=== PATIENT | female | born 1945 | race Caucasian/White ===

== ENCOUNTER 2016-05-24 08:01 | Day surgery (SDC) | payer MEDICARE, OTHER ==
[~2016-05-24] VITALS: Ht 165.1 cm; Wt 132.3 kg
--- NOTE | 2016-05-24 07:05 | MH ---
cc: PRABHA SWEENEY M.D. DATE OF ADMISSION: 05/24/2016 ADMITTING DIAGNOSIS Osteoarthritis of the right knee. HISTORY This is a 70-year-old female with significant right knee pain. Investigative studies shows evidence of extensive osteoarthritis of the right knee. Despite conservative care this patient is painful and symptomatic. She presents for surgical treatment. PAST MEDICAL HISTORY, SOCIAL HISTORY, FAMILY HISTORY, REVIEW OF SYSTEMS: See attached notes. PHYSICAL EXAMINATION General: A 70-year-old female in moderate distress with her right knee. HEENT: Normocephalic, atraumatic. Pupils equal, round, reactive to light and accommodation. Extraocular motions intact. Neck: Supple. Chest: Clear. Heart: Regular rate and rhythm. Abdomen: Soft, nontender with normoactive bowel sounds. Musculoskeletal: Examination shows right pain with range of motion especially with flexion and extension. Neurovascular and vascular examination is within normal limits. IMPRESSION: Osteoarthritis right knee. PLAN: Right total knee replacement arthroplasty. CONSENT There are risks with surgery including infection, bleeding, loss of motion, continued pain, need for further surgery, neurologic or vascular injury. The patient understands these risks and wishes to press on with the surgery as outlined above. MD MOISES Denton/SHAWN /11:13 PM /6:59 AM
[~2016-05-24 08:01] MED LIST: ASPI1TAB69 PO; CARV12.52 PO; IRBE300T11 PO; LOVA20TA PO; MELA1TAB18 PO; NEXI40CA PO; PROB1CAP12 PO; VENL75TA PO; VESI10TA PO; VITA10004 PO; VITA200012 PO
[2016-05-24] MEDS ORDERED: ceFAZolin 2 GM PREMIX 50 ML ONE (08:29)
[2016-05-24] MEDS ORDERED: GENTAMICIN SULFATE 80 MG/2 ML VIAL ONE (08:29)
[2016-05-24] MEDS ORDERED: ACET325T PO (08:41)
[2016-05-24] MEDS ORDERED: NOVOLOGP2 SQ (08:41)
[2016-05-24] MEDS ORDERED: POVIDONE IODINE 7.5% SCRUB 118 ML BOTTLE TOP SCH (08:45)
[2016-05-24] MEDS ORDERED: EXPAREL PERI-ARTICULAR INJECTION (TOTAL VOL. 60 ML) P-ARTICULR SCH ×2 (08:45)
[2016-05-24] MEDS ORDERED: ceFAZolin 2 GM PREMIX 50 ML IV SCH (08:45)
[2016-05-24] MEDS ORDERED: VANCOMYCIN 1000 MG/NS 250 ML (for <70 kg) IV SCH ×2 (08:45)
[2016-05-24] MEDS ORDERED: LEVEMIR SQ (08:54)
[2016-05-24] MEDS ORDERED: SODIUM CHLOR 0.9% 250 ML INJ 250 ML ONE (08:57)
[2016-05-24 08:58] VITALS: BP 139/69; PULSE 64; RESP 22; TEMP 97.7; O2SAT 95
[2016-05-24] MEDS ORDERED: SODIUM CHLORID 0.9% 500 ML IV SCH (09:00)
[2016-05-24] MEDS ORDERED: LACTATED RINGER'S 1000 ML IV SCH (09:00)
[2016-05-24] MEDS ORDERED: TRANEXAMIC ACID INJ 1,320 MG in SODIUM CHLORIDE 0.9% INJ 100 ML IV SCH (09:00)
[2016-05-24] MEDS ORDERED: INSULIN HUMAN REGULAR 1,000 UNITS/10 ML VIAL SQ PRN (09:00)
[2016-05-24] MEDS ORDERED: ACETAMINOPHEN 1000 MG/100 ML VIAL IV ONE (09:10)
[2016-05-24] MEDS ORDERED: MIDAZOLAM HCL 5 MG/5 ML VIAL ONE (09:40)
[2016-05-24] MEDS ORDERED: SUGAMMADEX SODIUM 200 MG/2 ML VIAL IV PUSH ONE ×2 (09:42)
[2016-05-24] MEDS ORDERED: FAMOTIDINE 20 MG/2 ML VIAL ONE (09:43)
[2016-05-24] MEDS ORDERED: ARTIFICIAL TEARS OPTH OINT 3.5 APPLIC/3.5 GM TUBO ONE (09:43)
[2016-05-24 09:47] LABS: BACTERIA, URINE OCC /hpf; BLOOD, URINE NEG (NEG); GLUCOSE,URINE NEG (NEG); HYALINE CAST, URINE 4 /lpf (RARE); KETONE, URINE NEG (NEG); MUCUS URINE FEW /lpf (OCC); NITRITE,URINE NEG (NEG); PH, URINE 5.5 (5.0-8.5); SQUAMOUS EPITHELIAL CELL URINE 4 /hpf (0-5); TRANSITIONAL EPI CELLS, URINE 1 /hpf; URINE COLOR YELLOW (YELLW/STRAW)
[2016-05-24 09:54] LABS: COMMENT (UR) CULTURE INDICATED; CULTURE IF INDICATED CULTURE INDICATED
== END 2016-05-24 11:05 | disposition home or self-care (01) ==
LOC: UNDOADMIN 08:01 → HSDI 08:01 → HSDC 08:01 → EDSTATUS 08:30 → HSDC 11:05
PROVIDERS: ATTEND Orthopaedic Surgery Orthopaedic Surgery of the Spine
DX: Z53.8 Procedure and treatment not carried out for other reasons (principal); M17.11 Unilateral primary osteoarthritis, right knee; R82.99 Other abnormal findings in urine
CPT/HCPCS: 81001; 82948; 86850; 86900; 86901; 86920; 87086; G0463; J2250; J3370; J7050; J7120; 99211; J0131; J0690; J1580

== ENCOUNTER 2016-06-06 14:35 | Inpatient (IN) | payer MEDICARE, OTHER ==
[~2016-06-06] VITALS: Ht 165.1 cm; Wt 135.2 kg
[~2016-06-06 14:35] MED LIST changes: +ACET325T PO; +LEVEMIR SQ; +NOVOLOGP2 SQ
--- NOTE | 2016-06-07 07:49 | MH ---
cc: PRABHA SWEENEY M.D. DATE OF ADMISSION: 06/07/2016 ADMITTING DIAGNOSIS Osteoarthritis of the right knee. HISTORY This is a 70-year-old female with significant right knee pain. Investigative studies show evidence of extensive arthritis of the right knee. Despite conservative care including injections, oral medications, altered activities, physical therapy, etc., the patient is painful and symptomatic. The patient presents for surgery. PAST MEDICAL HISTORY, SOCIAL HISTORY, FAMILY HISTORY, REVIEW OF SYSTEMS See attached notes. PHYSICAL EXAMINATION General: Average build female in moderate distress with her right knee. HEENT: Normocephalic, atraumatic. Pupils equal, round, reactive to light and accommodation. Extraocular motions intact. Neck: Supple. Chest: Clear. Heart: Regular rate and rhythm. Abdomen: Soft, nontender with normoactive bowel sounds. Musculoskeletal Examination: Right hip examination within normal limits. Right knee lacks 3-4 degrees from full extension. Flexion is to 110 degrees. Moderate crepitus is seen. Mild deformity. Neurologic and Vascular: Examination is within normal limits. IMPRESSION Osteoarthritis right knee. PLAN Right total knee replacement arthroplasty. CONSENT There are risks with surgery including infection, bleeding, loss of motion, continued pain, need for further surgery, neurologic and vascular injury. The patient understands these issues and wishes to press on with surgery as outlined above. MD MOISES Denton/SHAWN /8:22 PM /8:19 AM
[2016-06-07] MEDS ORDERED: BUPIVACAINE HCL PF 0.5% 30 ML VIAL NB ONE (08:09)
[2016-06-07 09:48] VITALS: BP 149/59; PULSE 56; RESP 18; TEMP 98.7; O2SAT 98
[2016-06-07] MEDS: LACTATED RINGER'S 1000 ML IV SCH (09:55)
[2016-06-07] MEDS ORDERED: ceFAZolin 2 GM PREMIX 50 ML IV SCH (10:00)
[2016-06-07] MEDS ORDERED: VANCOMYCIN 1000 MG/NS 250 ML (for <70 kg) IV SCH ×2 (10:00)
[2016-06-07] MEDS: POVIDONE IODINE 7.5% SCRUB 118 ML BOTTLE TOP SCH (10:00)
[2016-06-07] MEDS ORDERED: INSULIN HUMAN REGULAR 1,000 UNITS/10 ML VIAL SQ PRN (10:00)
[2016-06-07] MEDS: SODIUM CHLORID 0.9% 500 ML IV SCH (10:00)
[2016-06-07] MEDS: SODIUM CHLORIDE 0.9% IV SCH ×2 (10:00→13:26)
[2016-06-07] MEDS: EXPAREL PERI-ARTICULAR INJECTION (TOTAL VOL. 60 ML) P-ARTICULR SCH ×4 (10:00→13:26)
[2016-06-07] MEDS: TRANEXAMIC ACID IV SCH ×2 (10:00→13:26)
[2016-06-07] MEDS ORDERED: MIDAZOLAM HCL 2 MG/2 ML VIAL ONE ×3 (10:45→15:08)
[2016-06-07] MEDS ORDERED: GENTAMICIN SULFATE 80 MG/2 ML VIAL IRRIGATION ONE (11:55)
[2016-06-07] MEDS ORDERED: LACTATED RINGER'S 1000 ML INJ 1,000 ML IV ONE (12:49)
[2016-06-07] MEDS ORDERED: PROPOFOL 200 MG/20 ML AMP IV ONE (12:49)
[2016-06-07] MEDS ORDERED: ONDANSETRON HCL 4 MG/2 ML VIAL IV PUSH ONE (12:49)
[2016-06-07] MEDS ORDERED: CPMMACHINE (13:00)
--- NOTE | 2016-06-07 13:00 | HHI.FF ---
Face to Face Verification Diagnosis: (1) Right knee pain (2) Osteoarthritis of right knee Physical Therapy Gait training, Safety evaluation, Transfer training, bed to chair Knee: Total knee, Protocol: Right, Full weight bearing Canvas Knee Splint: When in bed & 2 pillows btw thighs Right LE Weight Bearing: WB as tolerated Additional Instructions PT 5 days/wk. TKA protocol. WBAT RLE. Walker to assist. CPM twice daily as tolerated - 0 to 70 flexion with goal of 100 flexion. CKS when in bed for 3 weeks. Nursing RN Days per Week: 2 x Week(s): 1 Dressing Changes: Do not change dressing Additional Instructions Vitals assessment, dressing assessment - do not change unless saturated or erythema. Ok to shower pod#5 if kept sealed and dry. I have seen patient Rebecca Laureano on 06/07/16. My clinical findings support the need for the requested home health care services because: Limited ability to care for self High risk of falls I certify that my clinical findings support that this patient is homebound because: Post-op weakness Unsteady gait/balance Malachi Spence MD Jun 07, 2016 13:00
[2016-06-07] MEDS ORDERED: WALKER WHEELS/F1 MIS (13:01)
[2016-06-07] MEDS ORDERED: ALUMINUM/MAGNESIUM/SIMETH 30 ML CUP PO PRN (14:30)
[2016-06-07] MEDS ORDERED: Post-op Orders (for Pharmacy) MISC XX ONE (14:30)
[2016-06-07] MEDS ORDERED: MISCELLANEOUS NURSING INFORMATION XX PRN (14:30)
[2016-06-07] MEDS ORDERED: BISACODYL 10 MG SUPP PR PRN (14:30)
[2016-06-07] MEDS ORDERED: ACETAMINOPHEN/HYDROcodone 325 MG/7.5 MG TAB PO PRN (14:30)
[2016-06-07] MEDS ORDERED: MORPHINE SULFATE 8 MG/ML INJ IV PUSH PRN (14:30)
[2016-06-07] MEDS ORDERED: ONDANSETRON HCL 4 MG/2 ML VIAL IVP PRN (14:30)
[2016-06-07] MEDS ORDERED: SODIUM CHLORIDE 0.9% FLUSH 5 ML FLUSH IVF PRN (14:30)
[2016-06-07] MEDS ORDERED: DEXTROSE 50% IN WATER 50 ML VIAL(D50) IV PRN (14:30)
[2016-06-07] MEDS ORDERED: GLUCAGON 1 MG/ML VIAL IM/SQ PRN (14:30)
[2016-06-07] MEDS ORDERED: NALOXONE HCL 0.4 MG/ML AMP IV PRN (14:30)
--- NOTE | 2016-06-07 14:39 | PD.OP ---
cc: Malachi Spence. Operative Report Date of Surgery: Jun 07, 2016 Preoperative Diagnosis: Osteoarthritis right knee, severe. Valgus deformity right knee Postoperative Diagnosis: Same Procedure: Right total knee replacement arthroplasty Anesthesia: Spinal Surgeon: Malachi Spence Under Presser(s): Cherelle Herrera PA-C Operation and Findings: EBL: 100 cc INDICATION: This patient presents with long-standing arthritis of the knee. The patient has a moderate to advanced valgus deformity of the right knee with mild instability. Attachment record documents conservative measures. The patient now presents for surgical treatment. NOTE: Cherelle Herrera PA-C was present for the entire surgical procedure as my sampler first. In my medical opinion her skill and care was necessary for proper management of this patient. TOURNIQUET TIME: 52 minutes COMPANY: [employer] FEMUR: Size 3, posterior cruciate retaining TIBIA: Size 3, fixed bearing PATELLA: 35 mm POLYETHYLENE INSERT: 9 mm PROCEDURE: This patient was brought the operating room and anesthetized in the supine position. The patient was positioned supine on the table. The tourniquet was placed about the thigh, and the leg was scrubbed with alcohol followed by Hibiclens followed by ChloraPrep and draped sterilely. A timeout was done, and antibiotics were given. After exsanguination the tourniquet was inflated to 300 mmHg. An anterior incision was made and a median parapatellar arthrotomy was performed. The patella was released laterally and subluxed allowing freehand cut of the patella which was then sized. A metal cap was placed over the exposed patellar surface for protection. A commercial drone pilot hole was placed in the distal femur allowing a 5 valgus cut removing 10 mm from the distal femur. Anterior posterior and chamfer cuts were made. The posterior stabilize osteotomy was not necessary. The attention was directed to the tibia. Retractors were positioned. The external alignment guide was used allowing the lateral tibia to be used as referencing guide and cut utilizing an oscillating saw taking care to avoid any injury to the surrounding soft tissues. This was sized properly. Trial reduction showed that the insert fit nicely. The patient had range of motion extension 0 flexion 115. A medial release was not necessary. The bony surfaces prepared. On the back table 2 packets of methylmethacrylate were mixed. The components were cemented. Excess cement was removed. The tourniquet let down and hemostasis was controlled. The final plastic insert was inserted. Range of motion was the same as previously noted. A drain was brought through a separate stab incision. The arthrotomy was repaired with interrupted #1 Vicryl suture, subcutaneous tissue 2-0 Vicryl suture and skin with metallic sarah A sterile dressing was applied. Sponge counts, needle counts and instrument counts were all correct. The patient tolerated procedure well and was taken to recovery in satisfactory condition. FINDINGS: There was advanced arthritis especially of the lateral compartment. A moderate valgus deformity was seen. Final stability was excellent. No complication was noted. Malachi Spence MD Jun 07, 2016 14:39
[2016-06-07] MEDS ORDERED: XARE10TA PO (14:41)
[2016-06-07] MEDS ORDERED: HYDR-3580 PO (14:41)
[2016-06-07] MEDS ORDERED: DO NOT ADM ANY ANTICOAGULANT DRUGS XX PRN (14:59)
[2016-06-07] MEDS: LACTATED RINGER'S 1000 ML INJ 1,000 ML IV SCH (15:00)
[2016-06-07] MEDS: MORPHINE SULFATE 30 MG/30 ML PCA IV SCH (15:36)
[2016-06-07 16:00] VITALS: BP 146/65; PULSE 65; RESP 19; TEMP 95.9; O2SAT 94
[2016-06-07] MEDS: INSULIN NovoLIN REGULAR SUPPLEMENTAL SCALE SQ SCH ×2 (16:00→21:52)
--- NOTE | 2016-06-07 16:18 | RADRPT ---
EXAM DATE/TIME: 06/07/2016 14:57 [facility] COMPARISON: No previous studies available for comparison. INDICATIONS : Post operative right knee. MEDICAL HISTORY : None. SURGICAL HISTORY : None. ENCOUNTER: Initial ACUITY: 1 day PAIN SCORE: Non-responsive. LOCATION: anterior right knee. FINDINGS: AP and lateral views of the right knee demonstrate changes consistent with recent total knee arthropl asty with metallic hardware in place in the distal femur and proximal tibia. There is a radiolucent p atellar component. Skin sarah are present anteriorly. There is soft tissue gas present, as expected . A surgical drain is in place. CONCLUSION: Expected findings are present following recent right total knee arthroplasty. Alonzo Leavitt MD on June 07, 2016 at 16:16 Board Certified Radiologist. This report was verified electronically.
--- NOTE | 2016-06-07 16:22 | PD.CONS ---
HPI Service [facility] Hospitalists Consult Requested By Malachi Guardado Reason for Consult Medical management Primary Care Physician Leonela Venegas Diagnoses: History of Present Illness This is a pleasant 70 year old white female with significant history of arthritis of the knee, valgus deformity that has failed conservative outpatient treatment. Patient presented for elective surgery. Patient underwent right total knee arthroplasty per Dr. Spence. Patient tolerated procedure well, she has minimal pain. Denies any chest pain, shortness of breath. Has history hypertension, hyperlipidemia and type 2 diabetes on insulin. Indicates blood sugars are well controlled at home. Indicates surgery was canceled 2 weeks ago after she was found to have a UTI, denies any fever, no chills, no urinary symptoms. Hospitalist services are requested for medical management. (Any Ferrell) Review of Systems Constitutional: DENIES: Diaphoretic episodes, Fatigue, Fever, Weight gain, Weight loss, Chills, Dizziness, Change in appetite, Night Sweats Endocrine: DENIES: Abnorml menstrual pattern, Heat/cold intolerance, Polydipsia , Polyuria, Polyphagia Eyes: DENIES: Blurred vision, Diplopia, Eye inflammation, Eye pain, Vision loss , Photosensitivity, Double Vision Ears, nose, mouth, throat: DENIES: Tinnitus, Hearing loss, Vertigo, Nasal discharge, Oral lesions, Throat pain, Hoarseness, Ear Pain, Running Nose, Epistaxis, Sinus Pain, Toothache, Odynophagia Respiratory: DENIES: Apneas, Cough, Snoring, Wheezing, Hemoptysis, Sputum production, Shortness of breath Cardiovascular: DENIES: Chest pain, Palpitations, Syncope, Dyspnea on Exertion , PND, Lower Extremity Edema, Orthopnea, Claudication Gastrointestinal: DENIES: Abdominal pain, Black stools, Bloody stools, Constipation, Diarrhea, Nausea, Vomiting, Difficulty Swallowing, Anorexia Genitourinary: DENIES: Abnormal vaginal bleeding, Dysmenorrhea, Dyspareunia, Sexual dysfunction, Urinary frequency, Urinary incontinence, Urgency, Hematuria , Dysuria, Nocturia, Vaginal discharge Musculoskeletal: COMPLAINS OF: Joint pain, DENIES: Muscle aches, Stiffness, Joint Swelling, Back pain, Neck pain Integumentary: DENIES: Abnormal pigmentation, Pruritus, Rash, Nail changes, Breast masses, Breast skin changes, Nipple discharge Hematologic/lymphatic: DENIES: Bruising, Lymphadenopathy Immunologic/allergic: DENIES: Eczema, Urticaria Neurologic: DENIES: Abnormal gait, Headache, Localized weakness, Paresthesias, Seizures, Speech Problems, Tremor, Poor Balance Psychiatric: DENIES: Anxiety, Confusion, Mood changes, Depression, Hallucinations, Agitation, Suicidal Ideation, Homicidal Ideation, Delusions ( Any Ferrell) Past Family Social History Past Medical History Type 2 diabetes Hypertension Osteoarthritis Hyperlipidemia Cataracts Soft tissue infection of the left knee Esophageal stricture Recent UTI Past Surgical History Cataract surgery Tonsillectomy Left breast biopsy Right hip replacement Reported Medications Reported Meds & Active Scripts Active Xarelto (Rivaroxaban) 10 Mg Tab 10 Mg PO Q24H Hydrocodone-Acetaminophen 7.5-325 mg Tab 1 Tab PO Q4H PRN Reported Levemir Inj (Insulin Detemir) 1,000 unit/ 10 ML Vial 30 Units SQ BID Do not mix with any other Insulin. Acetaminophen 325 Mg Tab 325 Mg PO Q4-6H PRN Novolog Inj (Insulin Aspart) 1,000 Unit/10 Ml Vial 25 Units SQ TID Aspirin 81 Mg Tabdr 81 Mg PO HS Melatonin 10 Mg Tab 10 Mg PO HS PRN Lovastatin 20 Mg Tab 20 Mg PO HS Vitamin B12 Tr (Cyanocobalamin) 1,000 Mcg Tab 2,000 Mcg PO WEEKLY Vitamin D3 (Cholecalciferol) 2,000 Unit Tab 2,000 Units PO BID Acidophilus (Probiotic Product) 1 Cap Cap 1 Cap PO BID Carvedilol 12.5 Mg Tab 12.5 Mg PO BID Nexium (Esomeprazole DR) 40 Mg Capdr 40 Mg PO BID Vesicare (Solifenacin) 10 Mg Tab 10 Mg PO DAILY Irbesartan 300 Mg Tab 300 Mg PO DAILY Effexor (Venlafaxine HCl) 75 Mg Tab 150 Mg PO DAILY (Any Ferrell) Allergies: Coded Allergies: Ciprofloxacin (Verified Allergy, Severe, Rash, 06/07/16) Toprol Xl (Verified Allergy, Severe, Rash, 06/07/16) Metformin (Verified Allergy, Unknown, Rash, 06/07/16) Active Ordered Medications Inpatient Medications Acetaminophen/ Hydrocodone Bitart ([place] 7.5-325 Mg) 2 tab Q4H PRN PO PAIN SCALE 5 TO 10; Start 06/07/16 at 14:30 Al Hydrox/Mg Hydrox/Simethicone (Mag-Al Plus Susp Liq) 30 ml Q6H PRN PO INDIGESTION; Start 06/07/16 at 14:30 Bisacodyl (Dulcolax Supp) 10 mg DAILY PRN [place] CONSTIPATION; Start 06/07/16 at 14 :30 Bupivacaine Liposome/Sodium Chloride (Exparel Pf 1.3% Inj/NS Inj) 60 ml @ 120 mls/hr ONCE P-ARTICULR Last administered on 06/07/16 13:26; Start 06/07/16 at 10:00; Stop 06/08/16 at 09:59 Carvedilol (Coreg) 12.5 mg BID PO ; Start 06/07/16 at 21:00 Cefazolin Sodium/ Dextrose 50 ml @ 100 mls/hr ANIMAL CARE TECHNICIAN IV Last administered on 06/07/16 12:40; Start 06/07/16 at 10:00; Stop 06/10/16 at 09:59 Cefazolin Sodium/ Sodium Chloride (Ancef Inj/NS Inj) 100 ml @ 200 mls/hr Q6H IV ; Start 06/07/16 at 18:00; Stop 06/08/16 at 06:29 Dextrose (D50w (Vial) Inj) 25 ml UNSCH PRN IV HYPOGLYCEMIA-SEE COMMENTS; Start 06/07/16 at 14:30 Docusate Sodium (Colace) 100 mg BID PO ; Start 06/08/16 at 21:00 Glucagon (Glucagon Inj) 1 mg UNSCH PRN IM/SQ HYPOGLYCEMIA-SEE COMMENTS; Start 06/07/16 at 14:30 Insulin Human Regular (NovoLIN R SUPPLEMENTAL SCALE) 1 ACHS SLIDING SCALE SQ ; Start 06/07/16 at 16:00 Insulin Human Regular (NovoLIN R INJ) See Protocol Table ... UNSCH X1 PRN SQ SEE PROTOCOL; Start 06/07/16 at 10:00; Stop 06/08/16 at 09:59 IV Flush (NS Flush) 2 ml UNSCH PRN IVF FLUSH AFTER USING IV ACCESS; Start 06/07 at 14:30 IV Flush 2 ml 2 ml BID IVF ; Start 06/07/16 at 21:00 Lactated Ringer's (Lr 1000 ml Inj) 1,000 ml @ 80 mls/hr [id number] IV Last administered on 06/07/16 15:00; Start 06/07/16 at 14:28 Losartan Potassium (Cozaar) 300 mg DAILY PO ; Start 06/08/16 at 09:00; Status UNV Magnesium Hydroxide (Milk Of Magnmargo Liq) 30 ml DAILY PRN PO CONSTIPATION; Start 06/07/16 at 14:30 Miscellaneous Information ALL NURSING DEPARTME... UNSCH PRN XX SEE LABEL COMMENTS; Start 06/07/16 at 14:59; Stop 06/08/16 at 14:58 Miscellaneous Information (Post-op Orders (for Pharmacy)) STAT ONCE XX ; Start 06/07/16 at 14:30; Stop 06/07/16 at 15:23; Status DC Morphine Sulfate (Morphine 1 Mg/ ml ALTERNATIVE ENERGY TECHNICIAN) 30 mg UNSCH IV Last administered on t 15:36; Start 06/07/16 at 14:30 Morphine Sulfate (Morphine Inj) 5 mg Q3H PRN IV PUSH Pain >7 when off ALTERNATIVE ENERGY TECHNICIAN; Start 06/07/16 at 14:30 Multivitamins/ Minerals Therapeutic (Theragran M Tab) 1 tab BID PO ; Start 06/08 at 21:00; Stop 08/07/16 at 20:59 Naloxone HCl (Narcan Inj) 0.4 mg UNSCH PRN IV RESPIRATORY RATE LESS THAN 10; Start 06/07/16 at 14:30 Ondansetron HCl (Zofran Inj) 4 mg Q6H PRN IVP NAUSEA OR VOMITING; Start at 14:30 Pantoprazole Sodium (Protonix) 40 mg BID PO ; Start 06/07/16 at 21:00 ALTERNATIVE ENERGY TECHNICIAN Dosage Infused (Pha) 1 Q8HR .XX ; Start 06/07/16 at 22:00 Povidone Iodine 1 applic 1 applic ONCE TOP ; Start 06/07/16 at 10:00; Stop 06/10 at 09:59 Pravastatin Sodium (Pravachol) 20 mg HS PO ; Start 06/07/16 at 21:00 Rivaroxaban (Xarelto) 10 mg Q24H PO ; Start 06/08/16 at 14:00 Sodium Chloride (NS 500 ml Inj) 500 ml @ 30 mls/hr [id number] IV ; Start 06/07/16 at 10:00; Stop 06/08/16 at 09:59 Tolterodine Tartrate (Detrol La) 4 mg DAILY PO ; Start 06/08/16 at 09:00 Tranexamic Acid 1306 mg/Sodium Chloride 113.06 ml @ 200 mls/ hr ONCE IV Last administered on 06/07/16 13:26; Start 06/07/16 at 10:00; Stop 06/08/16 at 16:00 Vancomycin HCl 1000 mg/Sodium Chloride 250 ml @ 250 mls/hr ANIMAL CARE TECHNICIAN IV Last administered on 06/07/16 10:13; Start 06/07/16 at 10:00; Stop 06/10/16 at 09:59 Venlafaxine HCl 150 mg 150 mg DAILY PO ; Start 06/08/16 at 09:00 Family History Positive for history of diabetes in her mother and daughter. Social History Patient is , lives with . Denies any alcohol, no substance abuse , no tobacco abuse. (Any Ferrell) Physical Exam Vital Signs Vital Signs Date Time Temp Pulse Resp B/P Pulse Ox O2 Delivery O2 Flow Rate FiO2 06/07/16 16:00 96.1 64 12 147/67 92 Room Air 06/07/16 15:45 60 12 145/81 95 Room Air 06/07/16 15:36 12 06/07/16 15:30 51 12 154/82 98 Room Air 06/07/16 15:15 94 12 170/80 95 Room Air 06/07/16 15:00 96.4 92 12 162/70 94 Room Air 06/07/16 09:48 98.7 56 18 149/59 98 Physical Exam GENERAL: This is a well-nourished, well-developed patient, in no apparent distress. SKIN: No rashes, ecchymoses or lesions. Cool and dry. HEAD: Atraumatic. Normocephalic. No temporal or scalp tenderness. EYES: Pupils equal round and reactive. Extraocular motions intact. No scleral icterus. No injection or drainage. ENT: Nose without bleeding, purulent drainage or septal hematoma. Throat without erythema, tonsillar hypertrophy or exudate. Uvula midline. Airway patent. NECK: Trachea midline. No JVD or lymphadenopathy. Supple, nontender, no meningeal signs. CARDIOVASCULAR: Regular rate and rhythm without murmurs, gallops, or rubs. RESPIRATORY: Clear to auscultation. Breath sounds equal bilaterally. No wheezes , rales, or rhonchi. GASTROINTESTINAL: Abdomen soft, non-tender, nondistended. No hepato-splenomegaly , or palpable masses. No guarding. MUSCULOSKELETAL: Right leg in CPM, bulky dressing in place. Hemovac drain in place. Intact sensation to the right foot, right pedal pulse 2+. Able to dorsiflex right foot. No other joint abnormalities. NEUROLOGICAL: Awake alert oriented 3. Following commands, no focal deficits. Laboratory Laboratory Tests Test 06/07/16 09:42 Blood Type A POSITIVE Antibody Screen NEGATIVE Crossmatch Leukocyte-Reduced Red Blood Cells Blood Bank Comment (Any Ferrell) Imaging Last Impressions Knee X-Ray 06/07/16 2418 Signed Impressions: Service Date/Time: Tuesday, June 07, 2016 14:57 - CONCLUSION: Expected findings are present following recent right total knee arthroplasty. Alonzo Leavitt MD (Any Ferrell) A/P Diagnosis: (1) Osteoarthritis of right knee (2) right total knee arthroplasty (3) Diabetes 1.5, managed as type 2 (4) Hypertension Assessment and Plan Thank you for this consultation 70-year-old female with history of osteoarthritis, status post right total knee arthroplasty -Continue postoperative orthopedic care Continue with Xarelto for DVT prophylaxis Physical therapy Wound care Pain management -Bowel regimen DM II Accu-Cheks before meals and at bedtime with insulin therapy Hypertension, stable Continue with home medications Continue with Xarelto for DVT prophylaxis Protonix for GI prophylaxis We will check CBC and BMP in the morning Plan of care has been discussed with the patient, attending and registered nurse. Further management of the patient will be dependent on the hospital course This patient was seen by myself and Dr. Miles, this consultation is written on his behalf (Any Ferrell) Assessment and Plan PT IS SEEN & EXAMINED D/W PT D/W ANY SCHROEDER W ABOVE THANKS WILL F/U (Brigette Miles MD) Problem Qualifiers (1) Osteoarthritis of right knee: Qualified Code: M17.11 - Primary osteoarthritis of right knee (2) Hypertension: Qualified Code: I10 - Essential hypertension Any Ferrell Jun 07, 2016 16:22 Brigette Miles MD Jun 07, 2016 18:38
[2016-06-07] MEDS ORDERED: *morphine SULFATE 8 MG/ML PERIprocedure ONLY ONE ×2 (17:24→17:39)
[2016-06-07] MEDS: ACETAMINOPHEN/HYDROcodone 325 MG/7.5 MG TAB PO PRN (18:30)
[2016-06-07 20:00] VITALS: BP 169/67; PULSE 86; RESP 20; TEMP 97.9; O2SAT 98
[2016-06-07] MEDS: SODIUM CHLORIDE 0.9% FLUSH 5 ML FLUSH IVF SCH (21:00)
[2016-06-07 21:39] VITALS: O2SAT 98
[2016-06-07] MEDS: PANTOPRAZOLE SOD 40 MG DELAYED RELEASE TAB PO SCH (21:44)
[2016-06-07] MEDS: CARVEDILOL 12.5 MG TAB PO SCH (21:44)
[2016-06-07] MEDS: PRAVASTATIN SOD 20 MG TAB PO SCH (21:44)
[2016-06-07] MEDS: PCA - TOTAL MG MORPHINE DELIVERED PER SHIFT SCH (22:00)
[2016-06-08] VITALS (8 sets, daily range): BP systolic 125–196; BP diastolic 47–75; PULSE 65–84; RESP 16–18; TEMP 95.9–99.3; O2SAT 92–98
[2016-06-08] MEDS: SODIUM CHLORID 0.9% 500 ML IV SCH (02:40)
[2016-06-08] MEDS: LACTATED RINGER'S 1000 ML INJ 1,000 ML IV SCH ×2 (02:58→13:03)
[2016-06-08] MEDS: MORPHINE SULFATE 30 MG/30 ML PCA IV SCH (03:21)
[2016-06-08] MEDS: ACETAMINOPHEN/HYDROcodone 325 MG/7.5 MG TAB PO PRN ×4 (03:24→20:48)
[2016-06-08] MEDS: PCA - TOTAL MG MORPHINE DELIVERED PER SHIFT SCH ×3 (06:00→21:41)
[2016-06-08] MEDS: INSULIN NovoLIN REGULAR SUPPLEMENTAL SCALE SQ SCH ×4 (06:20→20:49)
[2016-06-08 08:29] LABS: HEMATOCRIT 31.1 % (35.0-46.0); MEAN CELL VOLUME 88.2 FL (80.0-100.0); MEAN CORPUSCULAR HEMOGLOBIN 29.3 PG (27.0-34.0); MEAN CORPUSCULAR HGB CONC 33.2 % (32.0-36.0); PLATELET COUNT 219 TH/MM3 (150-450); RED BLOOD COUNT 3.52 MIL/MM3 (4.00-5.30); RED CELL DISTRIBUTION WIDTH 14.9 % (11.6-17.2); REVIEW FLAG FINAL; WHITE BLOOD COUNT 9.3 TH/MM3 (4.0-11.0)
[2016-06-08 08:49] LABS: BICARBONATE 26.7 MEQ/L (21.0-32.0); POTASSIUM 4.7 MEQ/L (3.5-5.1)
[2016-06-08] MEDS: SODIUM CHLORIDE 0.9% FLUSH 5 ML FLUSH IVF SCH ×2 (09:00→20:49)
[2016-06-08] MEDS: VENLAFAXINE HCL XR 75 MG CAP PO SCH (09:18)
[2016-06-08] MEDS: PANTOPRAZOLE SOD 40 MG DELAYED RELEASE TAB PO SCH ×2 (09:19→20:48)
[2016-06-08] MEDS: CARVEDILOL 12.5 MG TAB PO SCH ×2 (09:19→20:48)
[2016-06-08] MEDS: TOLTERODINE TARTRATE 4 MG CAP LA PO SCH (09:19)
[2016-06-08] MEDS: LOSARTAN 50 MG TAB PO SCH (09:19)
[2016-06-08] MEDS: SODIUM CHLORIDE 0.9% IV SCH (10:00)
[2016-06-08] MEDS: POVIDONE IODINE 7.5% SCRUB 118 ML BOTTLE TOP SCH (10:00)
[2016-06-08] MEDS: LACTATED RINGER'S 1000 ML IV SCH (10:00)
[2016-06-08] MEDS: TRANEXAMIC ACID IV SCH (10:00)
--- NOTE | 2016-06-08 11:24 | HHI.PR ---
Subjective History of Present Illness knee is painful /pain meds are helping No nausea or vomiting Appetite is not very good No fever or chills No chest pain or shortness of breath No abdominal pain No BM today Sat in chair today Offers no other complaints Vitals/Results Intake & Output 06/07/16 06/07/16 06/08/16 15:00 23:00 07:00 Intake Total 1900 ml 633 ml 280 ml Output Total 400 ml 585 ml 400 ml Balance 1500 ml 48 ml -120 ml Intake Oral 280 ml IV Total 633 ml Other 1900 ml Output Urine Total 550 ml 400 ml Drainage Total 35 ml Estimated Blood Loss 100 ml Other 300 ml # Bowel Movements 0 Vital Signs Vital Signs Date Time Temp Pulse Resp B/P Pulse Ox O2 Delivery O2 Flow Rate FiO2 06/08/16 06:00 17 06/08/16 03:21 18 06/08/16 01:10 162/70 06/07/16 22:00 18 06/07/16 21:39 98 21 06/07/16 20:00 97.9 86 20 169/67 98 06/07/16 17:00 98.5 69 12 160/79 98 Room Air 06/07/16 16:00 95.9 65 19 146/65 94 06/07/16 16:00 96.1 64 12 147/67 92 Room Air 06/07/16 15:45 60 12 145/81 95 Room Air 06/07/16 15:36 12 06/07/16 15:30 51 12 154/82 98 Room Air 06/07/16 15:15 94 12 170/80 95 Room Air 06/07/16 15:00 96.4 92 12 162/70 94 Room Air CBC/BMP: 06/08/16 0733 06/08/16 0733 Lab Results Laboratory Tests Test 06/08/16 07:33 White Blood Count 9.3 TH/MM3 Red Blood Count 3.52 MIL/MM3 Hemoglobin 10.3 GM/DL Hematocrit 31.1 % Mean Corpuscular Volume 88.2 FL Mean Corpuscular Hemoglobin 29.3 PG Mean Corpuscular Hemoglobin 33.2 % Concent Red Cell Distribution Width 14.9 % Platelet Count 219 TH/MM3 Mean Platelet Volume 8.9 FL Sodium Level 137 MEQ/L Potassium Level 4.7 MEQ/L Chloride Level 104 MEQ/L Carbon Dioxide Level 26.7 MEQ/L Anion Gap 6 MEQ/L Blood Urea Nitrogen 17 MG/DL Creatinine 1.14 MG/DL Estimat Glomerular Filtration 47 ML/MIN Rate Random Glucose 189 MG/DL Calcium Level 8.1 MG/DL Physical Exam General General Appearance: No Acute Distress, Comfortable, Obese Eyes Eye Exam: Sclera White, Extraocular Movement Intact Ears & Nose Ears & Nose Exam: Nasal Mucosa [place] Throat Throat Exam: Oral Mucosa [place] & Moist Neck Neck Exam: Neck Supple, Trachea Midline Pulmonary Resp Exam: Clear Bilaterally, Breath Sounds Equal Cardiology CV Exam: Regular, Normal Sinus Rhythm Gastrointestinal/Abdomen GI Exam: Soft, Non-Tender, Bowel Sounds Present Musculoskeletal MS Remarks R Knee dressing intact Integumentary Skin Exam: Warm, Dry Neurologic Neuro Exam: Alert, Awake, Oriented, Speech Clear, Moving All Extremities Psychiatric Psych Exam: Appropriate Responses PUD Prophylasis PUD Prophylaxis: Protonix Assessment/Plan Assessment/Plan A/P Diagnosis: (1) Osteoarthritis of right knee (2) right total knee arthroplasty (3) Diabetes 1.5, managed as type 2 (4) Hypertension Assessment and Plan - postoperative orthopedic care Xarelto for DVT prophylaxis Physical therapy Wound care Pain management - Bowel regimen/prn laxative DM II -diabetic diet -Resume levemir insulin 30 U sq bid - resume Novolog pre meal/tid Accu-Cheks before meals and at bedtime with insulin therapy Hypertension, stable -cont BB/ARB Continue with home medications/statin Continue with Xarelto for DVT prophylaxis Protonix for GI prophylaxis ss for letha planning Brigette Miles MD Jun 08, 2016 11:24
[2016-06-08] MEDS: INSULIN ASPART 1,000 UNITS/10 ML VIAL SQ SCH ×2 (12:03→17:01)
[2016-06-08] MEDS: RIVAROXABAN 10 MG TAB PO SCH (13:03)
--- NOTE | 2016-06-08 13:15 | PD.ORT.PN ---
Subjective Subjective Remarks Mild to moderate right knee pain in bed. Much worse with transitions. No radiating leg pain. Appetite good. No CP or SOB. No other concerns. Objective Vitals Vital Signs Date Time Temp Pulse Resp B/P Pulse Ox O2 Delivery O2 Flow Rate FiO2 06/08/16 13:02 16 06/08/16 06:00 17 06/08/16 03:21 18 06/08/16 01:10 162/70 06/07/16 22:00 18 06/07/16 21:39 98 21 06/07/16 20:00 97.9 86 20 169/67 98 06/07/16 17:00 98.5 69 12 160/79 98 Room Air 06/07/16 16:00 95.9 65 19 146/65 94 06/07/16 16:00 96.1 64 12 147/67 92 Room Air 06/07/16 15:45 60 12 145/81 95 Room Air 06/07/16 15:36 12 06/07/16 15:30 51 12 154/82 98 Room Air 06/07/16 15:15 94 12 170/80 95 Room Air 06/07/16 15:00 96.4 92 12 162/70 94 Room Air I/O 06/07/16 06/07/16 06/07/16 06/08/16 06/08/16 06/08/16 07:00 15:00 23:00 07:00 15:00 23:00 Intake Total 1900 ml 633 ml 280 ml 226 ml Output Total 400 ml 585 ml 400 ml 70 ml Balance 1500 ml 48 ml -120 ml 156 ml Intake Oral 280 ml IV Total 633 ml 226 ml Other 1900 ml Output Urine Total 550 ml 400 ml Drainage Total 35 ml 70 ml Estimated Blood Loss 100 ml Other 300 ml # Bowel Movements 0 Result Diagram: 06/08/16 0733 06/08/16 0733 Imaging Last 24 hours Impressions Knee X-Ray 06/07/16 1428 Signed Impressions: Service Date/Time: Tuesday, June 07, 2016 14:57 - CONCLUSION: Expected findings are present following recent right total knee arthroplasty. Alonzo Leavitt MD Objective Remarks Sitting up in bed eating lunch, No acute distress VSS RLE Dressing c/d/i, drain in place, moderate swelling thigh and calf both supple, neg homans +motor at, +ehl, +sens, +nvi Assessment & Plan Ortho Post Op Day #: 1 Problem List: Assessment and Plan pod#1 s/p R TKA Continue MANAGER PAYMENT until tomorrow am then d/c. PO pain meds for breakthrough. PT - WBAT RLE. CKS in bed. CPM twice daily. Walker as needed. Encouraged IS. Xarelto 10mg qd. Hold dressing changes unless saturated. Ok to d/c drain today. Ok to change drain site dressing only. D/C planning, prefers SNF monday. Alison Collins Jun 08, 2016 13:15
[2016-06-08] MEDS: MULTIVITAMINS/MINERALS THERAPEUTIC TAB PO SCH (20:48)
[2016-06-08] MEDS: PRAVASTATIN SOD 20 MG TAB PO SCH (20:48)
[2016-06-08] MEDS: DOCUSATE SODIUM 100 MG CAP PO SCH (20:48)
[2016-06-08] MEDS: INSULIN DETEMIR 100 UNITS/ML VIAL SQ SCH (20:49)
[2016-06-09] MEDS: LACTATED RINGER'S 1000 ML INJ 1,000 ML IV SCH ×2 (03:58→12:47)
[2016-06-09 04:00] VITALS: BP 130/55; PULSE 77; RESP 17; TEMP 98.9; O2SAT 91
[2016-06-09] MEDS: INSULIN NovoLIN REGULAR SUPPLEMENTAL SCALE SQ SCH ×4 (05:38→21:00)
[2016-06-09] MEDS: PCA - TOTAL MG MORPHINE DELIVERED PER SHIFT SCH ×2 (05:38→12:46)
[2016-06-09] MEDS: MAGNESIUM HYDROXIDE SUSP 30 ML CUP PO PRN ×2 (05:38→18:10)
[2016-06-09] MEDS: POVIDONE IODINE 7.5% SCRUB 118 ML BOTTLE TOP SCH (07:02)
[2016-06-09 08:00] VITALS: BP 153/66; PULSE 69; RESP 17; TEMP 96.8; O2SAT 98
[2016-06-09] MEDS: SODIUM CHLORIDE 0.9% FLUSH 5 ML FLUSH IVF SCH ×2 (09:00→21:20)
[2016-06-09] MEDS: MULTIVITAMINS/MINERALS THERAPEUTIC TAB PO SCH ×2 (09:36→21:20)
[2016-06-09] MEDS: VENLAFAXINE HCL XR 75 MG CAP PO SCH (09:36)
[2016-06-09] MEDS: PANTOPRAZOLE SOD 40 MG DELAYED RELEASE TAB PO SCH ×2 (09:36→21:20)
[2016-06-09] MEDS: LOSARTAN 50 MG TAB PO SCH (09:36)
[2016-06-09] MEDS: DOCUSATE SODIUM 100 MG CAP PO SCH ×2 (09:36→21:20)
[2016-06-09] MEDS: INSULIN DETEMIR 100 UNITS/ML VIAL SQ SCH ×2 (09:36→21:00)
[2016-06-09] MEDS: CARVEDILOL 12.5 MG TAB PO SCH ×2 (09:36→21:20)
[2016-06-09] MEDS: TOLTERODINE TARTRATE 4 MG CAP LA PO SCH (09:37)
[2016-06-09] MEDS: INSULIN ASPART 1,000 UNITS/10 ML VIAL SQ SCH ×3 (09:37→15:40)
[2016-06-09] MEDS: ACETAMINOPHEN/HYDROcodone 325 MG/7.5 MG TAB PO PRN ×4 (09:40→21:38)
[2016-06-09] MEDS: LACTATED RINGER'S 1000 ML IV SCH (09:40)
[2016-06-09 10:13] VITALS: O2SAT 94
[2016-06-09 12:00] VITALS: BP 148/64; PULSE 73; RESP 18; TEMP 97.7; O2SAT 99
[2016-06-09] MEDS: RIVAROXABAN 10 MG TAB PO SCH (12:47)
--- NOTE | 2016-06-09 12:52 | PD.ORT.PN ---
Subjective Subjective Remarks Mild to moderate right knee pain in bed. Bad episode last night but removing SCDs helped 'alot'. No new radiating leg pain. Appetite good. Urinating well. Passing gas but no BM. No CP or SOB. No other concerns. Objective Vitals Vital Signs Date Time Temp Pulse Resp B/P Pulse Ox O2 Delivery O2 Flow Rate FiO2 06/09/16 12:46 18 06/09/16 08:00 96.8 69 17 153/66 98 06/09/16 05:38 18 06/09/16 04:00 98.9 77 17 130/55 91 06/08/16 23:37 99.3 84 18 196/75 94 06/08/16 21:41 18 06/08/16 20:46 95 21 06/08/16 19:30 96.9 76 16 193/58 95 06/08/16 17:10 96.2 68 18 125/59 95 06/08/16 13:20 98 21 06/08/16 13:02 16 I/O 06/08/16 06/08/16 06/08/16 06/09/16 06/09/16 06/09/16 07:00 15:00 23:00 07:00 15:00 23:00 Intake Total 280 ml 826 ml 480 ml 480 ml 717 ml Output Total 400 ml 320 ml Balance -120 ml 506 ml 480 ml 480 ml 717 ml Intake Oral 280 ml 600 ml 480 ml 480 ml IV Total 226 ml 717 ml Output Urine Total 400 ml 250 ml Drainage Total 70 ml # Voids 1 2 2 # Bowel Movements 0 0 0 Result Diagram: 06/08/16 0733 06/08/16 0733 Imaging Last 24 hours Impressions Knee X-Ray 06/07/16 1428 Signed Impressions: Service Date/Time: Tuesday, June 07, 2016 14:57 - CONCLUSION: Expected findings are present following recent right total knee arthroplasty. 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 PO pain meds for breakthrough. PT - WBAT RLE. CKS in bed. CPM twice daily. Walker as needed. Encouraged IS. Encouraged LE exercises as she is not wearing SCDs. Xarelto 10mg qd. Hold dressing changes unless saturated. D/C planning, prefers SNF monday. Alison Collins Jun 09, 2016 12:52
[2016-06-09 16:00] VITALS: BP 113/53; PULSE 65; RESP 18; TEMP 98.3; O2SAT 93
[2016-06-09 20:00] VITALS: BP 144/66; PULSE 67; RESP 20; TEMP 96.9; O2SAT 94
[2016-06-09] MEDS: PRAVASTATIN SOD 20 MG TAB PO SCH (21:20)
--- NOTE | 2016-06-09 22:08 | HHI.PR ---
Subjective History of Present Illness knee pain is better /pain meds are helping No nausea or vomiting Appetite is not very good/po intake is marginal sligtly low sugar No fever or chills No chest pain or shortness of breath No abdominal pain Offers no other complaints Vitals/Results Intake & Output 06/08/16 06/08/16 06/09/16 15:00 23:00 07:00 Intake Total 826 ml 480 ml 480 ml Output Total 320 ml Balance 506 ml 480 ml 480 ml Intake Oral 600 ml 480 ml 480 ml IV Total 226 ml Output Urine Total 250 ml Drainage Total 70 ml # Voids 1 2 2 # Bowel Movements 0 0 Vital Signs Vital Signs Date Time Temp Pulse Resp B/P Pulse Ox O2 Delivery O2 Flow Rate FiO2 06/09/16 20:00 96.9 67 20 144/66 94 06/09/16 16:00 98.3 65 18 113/53 93 06/09/16 12:46 18 06/09/16 12:00 97.7 73 18 148/64 99 06/09/16 10:13 94 21 06/09/16 08:00 96.8 69 17 153/66 98 06/09/16 05:38 18 06/09/16 04:00 98.9 77 17 130/55 91 06/08/16 23:37 99.3 84 18 196/75 94 CBC/BMP: 06/08/16 0733 06/08/16 0733 Physical Exam General General Appearance: No Acute Distress, Comfortable, Obese Eyes Eye Exam: Sclera White, Extraocular Movement Intact Ears & Nose Ears & Nose Exam: Nasal Mucosa [place] Throat Throat Exam: Oral Mucosa [place] & Moist Neck Neck Exam: Neck Supple, Trachea Midline Pulmonary Resp Exam: Clear Bilaterally, Breath Sounds Equal Cardiology CV Exam: Regular, Normal Sinus Rhythm Gastrointestinal/Abdomen GI Exam: Soft, Non-Tender, Bowel Sounds Present Musculoskeletal MS Remarks R Knee dressing intact Integumentary Skin Exam: Warm, Dry Neurologic Neuro Exam: Alert, Awake, Oriented, Speech Clear, Moving All Extremities Psychiatric Psych Exam: Appropriate Responses PUD Prophylasis PUD Prophylaxis: Protonix Assessment/Plan Assessment/Plan A/P Diagnosis: (1) Osteoarthritis of right knee (2) right total knee arthroplasty (3) Diabetes 1.5, managed as type 2 (4) Hypertension (5) Mild hypoglycemia Assessment and Plan - postoperative orthopedic care Xarelto for DVT prophylaxis Physical therapy Wound care Pain management - Bowel regimen/prn laxative DM II -diabetic diet / encourage po intake levemir insulin 30 U sq bid - reduce dose Novolog pre meal/tid Accu-Cheks before meals and at bedtime with insulin therapy Hypertension, stable -cont BB/ARB Continue with home medications/statin Continue with Xarelto for DVT prophylaxis Protonix for GI prophylaxis ss for d.c Brigette Roland MD Jun 09, 2016 22:08
[2016-06-10] VITALS: BP 129/67; PULSE 80; RESP 20; TEMP 98.9; O2SAT 93
[2016-06-10] MEDS: LACTATED RINGER'S 1000 ML INJ 1,000 ML IV SCH (02:17)
[2016-06-10] MEDS: MAGNESIUM HYDROXIDE SUSP 30 ML CUP PO PRN (06:07)
[2016-06-10] MEDS: INSULIN NovoLIN REGULAR SUPPLEMENTAL SCALE SQ SCH ×3 (06:07→15:50)
[2016-06-10] MEDS: ACETAMINOPHEN/HYDROcodone 325 MG/7.5 MG TAB PO PRN ×3 (06:07→15:51)
--- NOTE | 2016-06-10 07:41 | PD.ORT.PN ---
Subjective Subjective Remarks No significant complaints. Lying in bed. Probable discharge today Objective Vitals Vital Signs Date Time Temp Pulse Resp B/P Pulse Ox O2 Delivery O2 Flow Rate FiO2 06/10/16 00:00 98.9 80 20 129/67 93 06/09/16 20:00 96.9 67 20 144/66 94 06/09/16 16:00 98.3 65 18 113/53 93 06/09/16 12:46 18 06/09/16 12:00 97.7 73 18 148/64 99 06/09/16 10:13 94 21 06/09/16 08:00 96.8 69 17 153/66 98 I/O 06/09/16 06/09/16 06/09/16 06/10/16 06/10/16 06/10/16 07:00 15:00 23:00 07:00 15:00 23:00 Intake Total 480 ml 717 ml 840 ml 150 ml Output Total 1 ml Balance 480 ml 717 ml 839 ml 150 ml Intake Oral 480 ml 840 ml 150 ml IV Total 717 ml Output Urine Total 1 ml # Voids 2 3 3 # Bowel Movements 0 0 0 Result Diagram: 06/08/16 0733 06/08/16 0733 Imaging Last 24 hours Impressions Knee X-Ray 06/07/16 1428 Signed Impressions: Service Date/Time: Tuesday, June 07, 2016 14:57 - CONCLUSION: Expected findings are present following recent right total knee arthroplasty. Alonzo Leavitt MD Objective Remarks Sitting up in bed, No acute distress VSS RLE Dressing c/d/i, drain site clean after drain dc'd, moderate swelling thigh and calf both supple, neg homans +motor at, +ehl, +sens, +nvi Assessment & Plan Ortho Post Op Day #: 3 Problem List: Assessment and Plan pod#2 s/p R TKA . PO pain meds for breakthrough. PT - WBAT RLE. CKS in bed. CPM twice daily. Walker as needed. Encouraged IS. Encouraged LE exercises as she is not wearing SCDs. Xarelto 10mg qd. Hold dressing changes unless saturated. D/C planning, prefers SNF today. [place] for pain Malachi Spence MD Jun 10, 2016 07:41
--- NOTE | 2016-06-10 07:50 | HHI.DCPOC ---
Discharge Care Plan Diagnosis: (1) Right knee pain (2) Osteoarthritis of right knee Your Health Problems Are: Incision/Drains Goals to Promote Your Health * To prevent worsening of your condition and complications * To maintain your health at the optimal level Directions to Meet Your Goals Take your medications as prescribed Follow your dietary instruction Follow activity as directed Keep your appointments as scheduled Take your immunizations and boosters as scheduled If your symptoms worsen call your PCP, if no PCP go to Urgent Care Center or Emergency Room Smoking is Dangerous to Your Health. Avoid second hand smoke Call the 24-hour hour crisis hotline for domestic abuse at Alison Collins Jun 10, 2016 07:50
--- NOTE | 2016-06-10 07:51 | HHI.DS ---
Discharge Summary Admission Date Jun 07, 2016 at 09:02 Discharge Date: Jun 10, 2016 Admitting Diagnosis see below Diagnosis: (1) Osteoarthritis of right knee Diagnosis: Principal (2) Right knee pain Diagnosis: Principal Procedures Right total knee arthroplasty Brief History This is a 70 year old female patient with a history of right knee pain. She sought out treatment was she began to develop a significant limp. Imaging studies were performed and showed significant arthritis about the right knee. Conservative measures were pursued for a period of time but she declined rapidly due to her condition and body habitus. Surgical treatment was recommended and she elected to move forward. CBC/BMP: 06/08/16 0733 06/08/16 0733 Significant Findings Laboratory Tests Test 06/08/16 07:33 Red Blood Count 3.52 MIL/MM3 (4.00-5.30) Hemoglobin 10.3 GM/DL (11.6-15.3) Hematocrit 31.1 % (35.0-46.0) Creatinine 1.14 MG/DL (0.50-1.00) Estimat Glomerular Filtration 47 ML/MIN (>89) Rate Random Glucose 189 MG/DL (74-106) Calcium Level 8.1 MG/DL (8.5-10.1) PE at Discharge Sitting up in bed, No acute distress VSS RLE Dressing c/d/i, drain site clean after drain dc'd, moderate swelling thigh and calf both supple, neg homans +motor at, +ehl, +sens, +nvi Hospital Course Surgical treatment was performed on the day of admission without complication. She recovered well in PACU and was transferred to the orthopaedic floor. Pain was controlled with IV and oral medications. DVT prophylaxis was initiated pod# 1. She was compliant with use of her CPM but struggled with putting forth significant effort in ambulating. After 3 days she was found to be stable and discharged to assisted with instruction to continue a high fiber diet and to continued physical therapy for an additional 6 weeks. Pt Condition on Discharge: Stable Discharge Disposition: Discharge to SNF Discharge Instructions Diet Instructions: Diabetic Diet, High Fiber Diet Activities You Can Perform: Regular-No Restrictions New Medications: CPM-Continuous Passive Motion Machine (CPM-Continuous Passive Motion Machine) 1 Ea Device 1 EA .ROUTE DIRECTED #1 Ref 0 EA Walker with Front Wheels (Walker with Front Wheels) 1 Mis Mis 1 EA .ROUTE DIRECTED #1 Ref 0 EA Hydrocodone-Acetaminophen (Hydrocodone-Acetaminophen) 7.5-325 mg Tab 1 TAB PO Q4H PRN PAIN LESS THAN 5 ON SCALE #50 TAB Rivaroxaban (Xarelto) 10 Mg Tab 10 MG PO Q24H Prevent Blood Clot #15 TAB Continued Medications: Acetaminophen (Acetaminophen) 325 Mg Tab 325 MG PO Q4-6H PRN PAIN Ref 0 TAB Carvedilol (Carvedilol) 12.5 Mg Tab 12.5 MG PO BID #60 Ref 0 TAB Cholecalciferol (Vitamin D3) 2,000 Unit Tab 2000 UNITS PO BID Nutritional Supplement #1 Ref 0 BOTTLE Cyanocobalamin (Vitamin B12 Tr) 1,000 Mcg Tab 2000 MCG PO WEEKLY #[address] (Nexium) 40 Mg Capdr 40 MG PO BID Ref 0 CAP Insulin Aspart Inj (Novolog Inj) 1,000 Unit/10 Ml Vial 25 UNITS SQ TID Blood Sugar Management #10 Ref 0 ML Insulin Detemir Inj (Levemir Inj) 1,000 unit/ 10 ML Vial 30 UNITS SQ BID Do not mix with any other Insulin. Blood Sugar Management Ref 0 VIAL Irbesartan (Irbesartan) 300 Mg Tab 300 MG PO DAILY Blood Pressure Management #30 Ref 0 TAB Lovastatin (Lovastatin) 20 Mg Tab 20 MG PO HS Cholesterol Management #30 Ref 0 TAB Melatonin (Melatonin) 10 Mg Tab 10 MG PO HS PRN SLEEP Ref 0 TAB Probiotic Product (Acidophilus) 1 Cap Cap 1 CAP PO BID Solifenacin (Vesicare) 10 Mg Tab 10 MG PO DAILY Urinary Symptom Managemen #30 Ref 0 TAB Venlafaxine (Effexor) 75 Mg Tab 150 MG PO DAILY #120 Ref 0 TAB Discontinued Medications: Aspirin (Aspirin) 81 Mg Tabdr 81 MG PO HS TAB Alison Collins Jun 10, 2016 07:51
[2016-06-10 08:00] VITALS: BP 129/60; PULSE 71; RESP 18; TEMP 98; O2SAT 95
[2016-06-10] MEDS: CARVEDILOL 12.5 MG TAB PO SCH (08:48)
[2016-06-10] MEDS: PANTOPRAZOLE SOD 40 MG DELAYED RELEASE TAB PO SCH (08:48)
[2016-06-10] MEDS: INSULIN DETEMIR 100 UNITS/ML VIAL SQ SCH (08:48)
[2016-06-10] MEDS: MULTIVITAMINS/MINERALS THERAPEUTIC TAB PO SCH (08:48)
[2016-06-10] MEDS: TOLTERODINE TARTRATE 4 MG CAP LA PO SCH (08:48)
[2016-06-10] MEDS: DOCUSATE SODIUM 100 MG CAP PO SCH (08:48)
[2016-06-10] MEDS: LOSARTAN 50 MG TAB PO SCH (08:48)
[2016-06-10] MEDS: VENLAFAXINE HCL XR 75 MG CAP PO SCH (08:49)
[2016-06-10] MEDS: LACTATED RINGER'S 1000 ML IV SCH (08:50)
[2016-06-10] MEDS: INSULIN ASPART 1,000 UNITS/10 ML VIAL SQ SCH ×3 (08:50→15:50)
[2016-06-10] MEDS: SODIUM CHLORIDE 0.9% FLUSH 5 ML FLUSH IVF SCH (08:50)
[2016-06-10 12:00] VITALS: BP 142/50; PULSE 67; RESP 18; TEMP 96.3; O2SAT 94
[2016-06-10] MEDS: RIVAROXABAN 10 MG TAB PO SCH (15:50)
== END 2016-06-10 16:01 | DRG 470 ==
LOC: HSDI 06-07 09:02 → N06B 06-07 18:00
PROVIDERS: ADMIT Orthopaedic Surgery Orthopaedic Surgery of the Spine; ATTEND Orthopaedic Surgery Orthopaedic Surgery of the Spine
PROC: 0QRD0JZ Replacement of Right Patella with Synthetic Substitute, Open Approach (ICD-10-PCS; 2016-06-07)
PROC: 3E0T3CZ (ICD-10-PCS; 2016-06-07)
PROC: 0SRC0J9 Replacement of Right Knee Joint with Synthetic Substitute, Cemented, Open Approach (ICD-10-PCS; principal; 2016-06-07 12:06)
DX: M17.11 Unilateral primary osteoarthritis, right knee (principal); Z68.42 Body mass index [BMI] 45.0-49.9, adult; E11.22 Type 2 diabetes mellitus with diabetic chronic kidney disease; E11.649 Type 2 diabetes mellitus with hypoglycemia without coma; N18.3 Chronic kidney disease, stage 3 (moderate); E66.9 Obesity, unspecified; M21.061 Valgus deformity, not elsewhere classified, right knee; E78.5 Hyperlipidemia, unspecified; K21.9 Gastro-esophageal reflux disease without esophagitis; Z79.01 Long term (current) use of anticoagulants; I12.9 Hypertensive chronic kidney disease with stage 1 through stage 4 chronic kidney disease, or unspecified chronic kidney disease; Z79.4 Long term (current) use of insulin; Z88.1 Allergy status to other antibiotic agents; Z96.641 Presence of right artificial hip joint
CPT/HCPCS: 73560; 80048; 82948; 85027; 86850; 86900; 86901; 86920; 94150; C1776; C9290; J0690; J1580; J1815; J2250; J2270; J2405; J3370; J7050; J7120; L1830

== ENCOUNTER 2017-07-02 10:10 | Emergency (ER) | payer MEDICARE, OTHER ==
[~2017-07-02] VITALS: Ht 165.1 cm; Wt 125.0 kg
[~2017-07-02 10:10] MED LIST changes: -ACET325T PO; +AMLO5 PO; +ASPI-516 CHEW; -ASPI1TAB69 PO; +Budeson-Formot 160-4.5 Mcg Inh INH; +CEFU1TAB18 PO; +GETGO ROLLING W1 MI1; +HYDR-3516 PO; +HYDR-3800 PO; -IRBE300T11 PO; +LISI-519 PO; -LOVA20TA PO; +LOVA40TA PO; -MELA1TAB18 PO; -NOVOLOGP2 SQ; +PRED5TAB PO; -PROB1CAP12 PO; +REST15CA PO; +SUCR1S PO; +VENTAER INH; -VESI10TA PO; +VESI10TA2 PO; -VITA10004 PO; -VITA200012 PO; +[UNRECOGNIZED DRUG - CODE] TOPICAL
[2017-07-02 10:14] VITALS: BP 135/77; PULSE 69; RESP 18; TEMP 97.4; O2SAT 97
--- NOTE | 2017-07-02 10:32 | PD ---
HPI Chief Complaint: Pain: Acute or Chronic Time Seen by Provider: 10:19 Travel History International Travel<30 days: No Contact w/Intl Traveler<30days: No Traveled to known affect area: No History of Present Illness HPI The patient is a 71-year-old female who presents to the emergency department for back pain. The patient states her pain started 1 week ago, after getting out of rehab. The pain is located over left lower back and radiates down the lateral aspect of the leg, stopping at the knee. The pain is worse with certain movements as well as positional changes. She also complains of pain while sitting in her wheelchair, states the bar across the bottom of the wheelchair makes the pain worse. She denies any swelling in the left lower extremity denies any numbness or tingling. The pain is moderate, minimally alleviated with hydrocodone at home. The patient saw her physician, Dr. Unger, who ordered x-rays of the back, she states there were degenerative changes. She denies any urinary or fecal incontinence. Symptoms are moderate. PFSH Past Medical History Arthritis: No Asthma: No Autoimmune Disease: No Anxiety: No Depression: No Heart Rhythm Problems: Yes Cancer: No Cardiovascular Problems: Yes (ABNORMAL EKG) High Cholesterol: No Chest Pain: No Congestive Heart Failure: No COPD: Yes Cerebrovascular Accident: No Diabetes: Yes Patient Takes Glucophage: No Endocrine: Yes Gastrointestinal Disorders: Yes (ESOPHAGEAL STRICTURE; ACID REFLUX) GERD: Yes Genitourinary: Yes (FREQUENCY AND URGENCY) Hepatitis: No Hiatal Hernia: No Hypertension: Yes Immune Disorder: No Implanted Vascular Access Dvce: Yes Kidney Stones: No Musculoskeletal: Yes (S/P RIGHT HIP REPLACEMENT) Neurologic: Yes Psychiatric: No Reproductive: No Respiratory: Yes Migraines: No Renal Failure: No Seizures: No Sleep Apnea: No Thyroid Disease: No Ulcer: No Influenza Vaccination: Yes Past Surgical History Abdominal Surgery: Yes (GALLBLADDER ) AICD: No Arteriovenous Shunt: No Body Medical Devices: R HIP Cardiac Surgery: No Cholecystectomy: Yes Ear Surgery: No Endocrine Surgery: No Eye Surgery: Yes (BILATERAL CATARACT) Genitourinary Surgery: No Gynecologic Surgery: Yes (L BREAST BX) Insulin Pump: No Joint Replacement: No Oral Surgery: Yes (TONSILECTOMY) Pacemaker: No Thoracic Surgery: No Tonsillectomy: Yes Other Surgery: Yes Social History Alcohol Use: No Tobacco Use: No Substance Use: No Allergies-Medications (Allergen,Severity, Reaction): Coded Allergies: ciprofloxacin (Unverified Allergy, Severe, Rash, 07/02/17) metoprolol (Unverified Allergy, Severe, Rash, 07/02/17) metformin (Unverified Allergy, Unknown, Rash, 07/02/17) Reported Meds & Prescriptions Reported Meds & Active Scripts Active S-C Moist Barrier Oint-Aloe (Petrolatum/Vit A/Vit D3/E/Aloe) 98.3 % Oint...g. 1 Applic TOPICAL BID 30 Days Lisinopril 5 Mg Tab 2.5 Mg PO DAILY Norvasc (Amlodipine Besylate) 5 Mg Tab 5 Mg PO DAILY Walker Rolling/GetGo (Device) 1 Mis Mis Ea .XX DIRECTED Sucralfate Liq (Sucralfate) 1 Gram/10 Ml Beata 1 Gm PO BIDAC 30 Days [Budeson-Formot 160-4.5 Mcg Inh] 60 PUFF Aero 2 Puff INH Q12HR 30 Days Restoril (Temazepam) 15 Mg Cap 15 Mg PO HS PRN Hydrocodone-Acetamin 5-325 mg (Hydrocodone/Acetaminophen) 5 Mg-325 Mg Tablet 1 Tab PO Q6HR PRN Hydralazine HCl 50 Mg Tablet 50 Mg PO Q8HR Ventolin Hfa 18 GM Inh (Albuterol Sulfate) 90 Mcg/Act Aer 2 Puff INH Q4-6H PRN Aspirin 81 Mg Chew 81 Mg CHEW DAILY Lovastatin 40 Mg Tab 40 Mg PO DAILY Levemir Inj (Insulin Detemir) 1,000 unit/ 10 ML Vial 30 Units SQ BID 30 Days Do not mix with any other Insulin. Carvedilol 12.5 Mg Tab 12.5 Mg PO BID Nexium (Esomeprazole DR) 40 Mg Capdr 40 Mg PO BID Vesicare (Solifenacin) 10 Mg Tab 10 Mg PO DAILY Effexor (Venlafaxine HCl) 75 Mg Tab 150 Mg PO DAILY Review of Systems Except as stated in HPI: all other systems reviewed are Neg General / Constitutional: No: Fever Genitourinary: No: Dysuria, Incontinence Musculoskeletal: Positive: Arthralgias, Limited ROM, Pain Neurologic: No: Paresthesia, Sensory Disturbance Physical Exam Narrative GENERAL: Awake, alert, morbidly obese 71-year-old female who appears her stated age and is in no acute respiratory distress. SKIN: Focused skin assessment warm/dry. HEAD: Atraumatic. Normocephalic. EYES: Pupils equal and round. No scleral icterus. No injection or drainage. Back: No tenderness of the midline of the thoracic or lumbar vertebrae. Tenderness over the left sacroiliac. No tenderness of the left lateral gluteal area. MUSCULOSKELETAL: No obvious deformities. No clubbing. No cyanosis. No edema. Plantarflexion is 5 out of 5. Extension is 4+/5. Flexion of the hip is 4+/5. NEUROLOGICAL: Awake and alert. No obvious cranial nerve deficits. Motor grossly within normal limits. Normal speech. Sensation is intact with medial, lateral, dorsal aspect of the left leg. PSYCHIATRIC: Appropriate mood and affect; insight and judgment normal. Data Data Last Documented VS Vital Signs Date Time Temp Pulse Resp B/P (MAP) Pulse Ox O2 Delivery O2 Flow Rate FiO2 07/02/17 10:14 97.4 69 18 135/77 (96) 97 Orders Orders Dexamethasone Inj (Decadron Inj) (07/02/17 10:45) Orphenadrine Inj (Norflex Inj) (07/02/17 10:45) MDM Medical Decision Making Medical Screen Exam Complete: Yes Emergency Medical Condition: Yes Medical Record Reviewed: Yes Differential Diagnosis Differential diagnosis includes back pain with radiculopathy, herniated disc, spinal stenosis, sciatica, sacroiliitis, DVT. Narrative Course The patient has pain in her left sacroiliac area that radiates down the left leg. She is neurovascularly intact. The patient was administered Decadron and Norflex IM. The patient will be placed on Medrol Dosepak and Norflex to go with her hydrocodone. I advised her to follow-up with orthopedist outpatient as she may benefit from steroid injections if her symptoms persist. Diagnosis Primary Impression: Back pain with left-sided radiculopathy Patient Instructions: General Instructions Additional Instructions: Medrol Dosepak. Medications as directed. Follow-up with your primary physician. Return if symptoms worsen or progress. Med/Other Pt SpecificInfo: Prescription(s) given Scripts Orphenadrine ER 12 HR (Orphenadrine CR) 100 Mg Tab 100 MG PO Q12HR for Muscle Spasm for 10 Days, #20 TAB 0 Refills Prov: Avelino Colon MD 07/02/17 Methylprednisolone Dosepak (Medrol Dosepak) 4 Mg Dspk 4 MG PO DIRECTED, #1 DSPK 0 Refills Per Pharmacist direction Prov: Avelino Colon MD 07/02/17 Disposition: 01 DISCHARGE HOME Condition: Stable Avelino Colon MD Jul 02, 2017 10:32
[2017-07-02] MEDS ORDERED: MEDR4PAK PO (10:37)
[2017-07-02] MEDS ORDERED: ORPH100T2 PO (10:37)
[2017-07-02] MEDS ORDERED: DEXAMETHASONE SOD PHOS 4 MG/ML VIAL IM ONE (10:45)
[2017-07-02] MEDS ORDERED: ORPHENADRINE INJ 60 MG/2 ML AMP IM ONE (10:45)
== END 2017-07-02 11:15 | disposition home or self-care (01) ==
LOC: NEPD 10:10
DX: M54.10 Radiculopathy, site unspecified (principal); E11.9 Type 2 diabetes mellitus without complications; I10 Essential (primary) hypertension; Z79.4 Long term (current) use of insulin
CPT/HCPCS: 96372; 99283; J1100; J2360

== ENCOUNTER 2017-07-11 11:39 | Inpatient (IN) | payer MEDICARE, OTHER ==
[~2017-07-11] VITALS: Ht 165.1 cm; Wt 116.7 kg
[2017-07-11] VITALS (10 sets, daily range): BP systolic 121–175; BP diastolic 58–74; PULSE 82–99; RESP 20–28; TEMP 97.4–97.5; O2SAT 98–100
[~2017-07-11 11:39] MED LIST changes: -CEFU1TAB18 PO; +MEDR4PAK PO; +ORPH100T2 PO; -PRED5TAB PO
--- NOTE | 2017-07-11 12:55 | PD ---
HPI Chief Complaint: Pain: Acute or Chronic Time Seen by Provider: 12:31 Travel History International Travel<30 days: No Contact w/Intl Traveler<30days: No Traveled to known affect area: No History of Present Illness HPI 71-year-old female presents to the emergency department with concern for a low SaO2 and left sciatica pain at the request of her physical therapist today. Patient had an extensive hospitalization earlier this year which included bilateral pneumonia and subsequent intubation. She did develop generalized deconditioning and required physical therapy for her left lower extremity sciatica. She did follow-up with Dr. Hoover who performed left hip and leg x -rays yesterday. She does not know the results of this. Patient is taking pain medications for this condition. Patient states that she has been using oxygen but only at night. For the last several days she has had significant shortness of breath without oxygen during the day. PFSH Past Medical History Arthritis: No Asthma: No Autoimmune Disease: No Anxiety: No Depression: No Heart Rhythm Problems: Yes Cancer: No Cardiovascular Problems: Yes (ABNORMAL EKG) High Cholesterol: No Chest Pain: No Congestive Heart Failure: No COPD: Yes Cerebrovascular Accident: No Diabetes: Yes Patient Takes Glucophage: No Endocrine: Yes Gastrointestinal Disorders: Yes (ESOPHAGEAL STRICTURE; ACID REFLUX) GERD: Yes Genitourinary: Yes (FREQUENCY AND URGENCY) Hepatitis: No Hiatal Hernia: No Hypertension: Yes Immune Disorder: No Implanted Vascular Access Dvce: Yes Kidney Stones: No Musculoskeletal: Yes (S/P RIGHT HIP REPLACEMENT) Neurologic: Yes Psychiatric: No Reproductive: No Respiratory: Yes Migraines: No Renal Failure: No Seizures: No Sleep Apnea: No Thyroid Disease: No Ulcer: No Influenza Vaccination: Yes Past Surgical History Abdominal Surgery: Yes (GALLBLADDER ) AICD: No Arteriovenous Shunt: No Body Medical Devices: R HIP Cardiac Surgery: No Cholecystectomy: Yes Ear Surgery: No Endocrine Surgery: No Eye Surgery: Yes (BILATERAL CATARACT) Genitourinary Surgery: No Gynecologic Surgery: Yes (L BREAST BX) Insulin Pump: No Joint Replacement: No Oral Surgery: Yes (TONSILECTOMY) Pacemaker: No Thoracic Surgery: No Tonsillectomy: Yes Other Surgery: Yes Social History Alcohol Use: No Tobacco Use: No Substance Use: No Allergies-Medications (Allergen,Severity, Reaction): Coded Allergies: ciprofloxacin (Unverified Allergy, Severe, Rash, 07/11/17) metoprolol (Unverified Allergy, Severe, Rash, 07/11/17) metformin (Unverified Allergy, Unknown, Rash, 07/11/17) Reported Meds & Prescriptions Reported Meds & Active Scripts Active Orphenadrine CR (Orphenadrine Citrate) 100 Mg Tab 100 Mg PO Q12HR 10 Days Medrol Dosepak (Methylprednisolone) 4 Mg Dspk 4 Mg PO DIRECTED Per Pharmacist direction S-C Moist Barrier Oint-Aloe (Petrolatum/Vit A/Vit D3/E/Aloe) 98.3 % Oint...g. 1 Applic TOPICAL BID 30 Days Lisinopril 5 Mg Tab 2.5 Mg PO DAILY Norvasc (Amlodipine Besylate) 5 Mg Tab 5 Mg PO DAILY Walker Rolling/GetGo (Device) 1 Mis Mis Ea .XX DIRECTED Sucralfate Liq (Sucralfate) 1 Gram/10 Ml Beata 1 Gm PO BIDAC 30 Days [Budeson-Formot 160-4.5 Mcg Inh] 60 PUFF Aero 2 Puff INH Q12HR 30 Days Restoril (Temazepam) 15 Mg Cap 15 Mg PO HS PRN Hydrocodone-Acetamin 5-325 mg (Hydrocodone/Acetaminophen) 5 Mg-325 Mg Tablet 1 Tab PO Q6HR PRN Hydralazine HCl 50 Mg Tablet 50 Mg PO Q8HR Ventolin Hfa 18 GM Inh (Albuterol Sulfate) 90 Mcg/Act Aer 2 Puff INH Q4-6H PRN Aspirin 81 Mg Chew 81 Mg CHEW DAILY Lovastatin 40 Mg Tab 40 Mg PO DAILY Levemir Inj (Insulin Detemir) 1,000 unit/ 10 ML Vial 30 Units SQ BID 30 Days Do not mix with any other Insulin. Carvedilol 12.5 Mg Tab 12.5 Mg PO BID Nexium (Esomeprazole DR) 40 Mg Capdr 40 Mg PO BID Vesicare (Solifenacin) 10 Mg Tab 10 Mg PO DAILY Effexor (Venlafaxine HCl) 75 Mg Tab 150 Mg PO DAILY Review of Systems Except as stated in HPI: all other systems reviewed are Neg Physical Exam Narrative GENERAL: WD, WN in NAD SKIN: Focused skin assessment warm/dry. HEAD: Atraumatic. Normocephalic. EYES: Pupils equal and round. No scleral icterus. No injection or drainage. ENT: No nasal bleeding or discharge. Mucous membranes pink and moist. NECK: Trachea midline. No JVD. no lymphadenopathy CARDIOVASCULAR: Regular rate and rhythm. No murmur appreciated. RESPIRATORY: No accessory muscle use. lower lobes with rales vs rhonchi GASTROINTESTINAL: Abdomen soft, non-tender, nondistended. MUSCULOSKELETAL: No obvious deformities. No clubbing. No cyanosis. No edema. Homans sign negative. NEUROLOGICAL: Awake and alert. No obvious cranial nerve deficits. Motor grossly within normal limits. Normal speech. PSYCHIATRIC: Appropriate mood and affect; insight and judgment normal. Data Data Last Documented VS Vital Signs Date Time Temp Pulse Resp B/P (MAP) Pulse Ox O2 Delivery O2 Flow Rate FiO2 07/11/17 15:12 91 24 175/74 (107) 99 Nasal Cannula 07/11/17 13:10 4.00 07/11/17 12:06 97.5 Orders Orders Complete Blood Count With Diff (07/11/17 12:56) Comprehensive Metabolic Panel (07/11/17 12:56) B-Type Natriuretic Peptide (07/11/17 12:56) Act Partial Throm Time (Ptt) (07/11/17 12:56) Prothrombin Time / Inr (Pt) (07/11/17 12:56) Magnesium (Mg) (07/11/17 12:56) Ckmb (Isoenzyme) Profile (07/11/17 12:56) Troponin I (07/11/17 12:56) Urinalysis - C+S If Indicated (07/11/17 12:56) Blood Culture (07/11/17 12:56) Iv Access Insert/Monitor (07/11/17 12:56) Electrocardiogram (07/11/17 12:56) Ecg Monitoring (07/11/17 12:56) Oximetry (07/11/17 12:56) Chest, Pa & Lat (07/11/17 12:56) Sodium Chloride 0.9% Flush (Ns Flush) (07/11/17 13:00) Methylprednisolone So Succ Inj (Solumedr (07/11/17 13:00) Albuterol-Ipratropium Neb (Duoneb Neb) (07/11/17 13:00) Lactic Acid Sepsis Protocol (07/11/17 12:56) Urine Culture (07/11/17 15:00) Ceftriaxone Inj (Rocephin Inj) (07/11/17 16:00) Azithromycin Inj (Zithromax Inj) (07/11/17 16:00) Morphine Inj (Morphine Inj) (07/11/17 16:15) Ventilation & Perfusion Scan (07/11/17 ) Place In Observation (07/11/17 ) Vital Signs (Adult) Q4H (07/11/17 16:24) Activity Bed Rest (07/11/17 16:24) Toxicology Supervisor / Telemetry .CONTINUOUS (07/11/17 16:24) Sodium Chloride 0.9% Flush (Ns Flush) (07/11/17 16:30) Sodium Chloride 0.9% Flush (Ns Flush) (07/11/17 21:00) Ondansetron Inj (Zofran Inj) (07/11/17 16:30) Basic Metabolic Panel (Bmp) (07/12/17 06:00) Complete Blood Count With Diff (07/12/17 06:00) Resp Oxygen Frederick C Titrat 1-4 L (07/11/17 ) Pt Request For Service (07/11/17 16:24) Case Management Consult (07/11/17 16:24) Naloxone Inj (Narcan Inj) (07/11/17 16:30) Ct Pelvis W/O Iv Contrast (07/11/17 ) Admit Order (Ed Use Only) (07/11/17 16:40) Labs Laboratory Tests Test 07/11/17 13:12 07/11/17 15:00 White Blood Count 16.0 TH/MM3 Red Blood Count 3.97 MIL/MM3 Hemoglobin 11.4 GM/DL Hematocrit 34.6 % Mean Corpuscular Volume 87.0 FL Mean Corpuscular Hemoglobin 28.6 PG Mean Corpuscular Hemoglobin Concent 32.9 % Red Cell Distribution Width 18.2 % Platelet Count 169 TH/MM3 Mean Platelet Volume 8.9 FL Neutrophils (%) (Auto) 59.1 % Lymphocytes (%) (Auto) 31.8 % Monocytes (%) (Auto) 7.3 % Eosinophils (%) (Auto) 1.3 % Basophils (%) (Auto) 0.5 % Neutrophils # (Auto) 9.5 TH/MM3 Lymphocytes # (Auto) 5.1 TH/MM3 Monocytes # (Auto) 1.2 TH/MM3 Eosinophils # (Auto) 0.2 TH/MM3 Basophils # (Auto) 0.1 TH/MM3 CBC Comment DIFF FINAL Differential Comment Prothrombin Time 10.7 SEC Prothromb Time International Ratio 1.1 RATIO Activated Partial Thromboplast Time 25.7 SEC Blood Urea Nitrogen 25 MG/DL Creatinine 1.55 MG/DL Random Glucose 126 MG/DL Total Protein 6.5 GM/DL Albumin 2.9 GM/DL Calcium Level 8.5 MG/DL Magnesium Level 1.9 MG/DL Alkaline Phosphatase 102 U/L Aspartate Amino Transf (AST/SGOT) 13 U/L Alanine Aminotransferase (ALT/SGPT) 15 U/L Total Bilirubin 0.6 MG/DL Sodium Level 138 MEQ/L Potassium Level 4.4 MEQ/L Chloride Level 106 MEQ/L Carbon Dioxide Level 20.6 MEQ/L Anion Gap 11 MEQ/L Estimat Glomerular Filtration Rate 33 ML/MIN Lactic Acid Level 2.1 mmol/L Total Creatine Kinase 54 U/L Troponin I 0.05 NG/ML B-Type Natriuretic Peptide 17 PG/ML Urine Color YELLOW Urine Turbidity HAZY Urine pH 5.5 Urine Specific [place] 1.012 Urine Protein 30 mg/dL Urine Glucose (UA) NEG mg/dL Urine Ketones NEG mg/dL Urine Occult Blood NEG Urine Nitrite NEG Urine Bilirubin NEG Urine Urobilinogen LESS THAN 2.0 MG/DL Urine Leukocyte Esterase LARGE Urine RBC 4 /hpf Urine WBC /hpf Urine WBC Clumps OCC Urine Squamous Epithelial Cells 1 /hpf Urine Renal Epithelial Cells <1 /hpf Urine Bacteria OCC /hpf Urine Hyaline Casts 1 /lpf Microscopic Urinalysis Comment CULTURE INDICATED MDM Medical Decision Making Medical Screen Exam Complete: Yes Emergency Medical Condition: Yes Differential Diagnosis Left sciatica, muscle spasms, pneumonia, bronchitis, general deconditioning Narrative Course 71-year-old female with a history of diabetes presents emergency department with concerns for left lower extremity and hip pain for approximately 3 weeks. In addition, her physical therapist was concerned about SaO2 levels despite 4 L/ min of oxygen at home. Patient does not have a history of COPD or asthma. States that when she was admitted in April for bilateral pneumonia, had significant deconditioning. This required admission to [place] [facility] and resulted in home oxygen. Patient says that she is only needed oxygen at night however, for the last several days she has needed this oxygen throughout the day. Upon arrival, patient's a and O 4 resting comfortably in bed. Minimal movement in bed results in shortness of breath. Patient denies chest pain, fever, abdominal Pain, back pain. Denies leg pain. Solu-Medrol and DuoNeb administered with minimal response of O2. Pt remained on 4LPM in the ED today. Labs demonstrate leukocytosis although patient is on prednisone. BUN/ creatinine improved from previous visit June 19. Lactic acid 2.1 Urine is suggestive of a urinary tract infection. After further discussion, with the patient, it appears that patient has had recurrent urinary tract infections and was placed on Macrobid once a day for prevention by her urologist. States that she has not had this medication and "a little while". Chest x-ray demonstrates diminished lung volumes without colic consolidation, cardiomegaly and probable interstitial edema. Rocephin and azithromycin initiated. Morphine administered cautiously as she does have hypoxia. I am concerned about her developing sepsis secondary to urinary tract infection , possible developing pneumonia with hypoxia. After discussing the plan with the patient, she was only concerned about her left hip pain. I explained that I was concerned about her oxygenation and lab values. I recommend admission with Ortho consult. Consider pulmonary consult as patient does not have COPD or asthma. Patient is significantly deconditioned and requires 4 L/min O2 in the hospital today. I spoke with Dr. Nath who will order V/Q scan. This should be done prior to departing the ED today. Sepsis Criteria Severe Sepsis (+one): Lactate >2 Diagnosis Primary Impression: Pneumonia Qualified Codes: J18.9 - Pneumonia, unspecified organism Additional Impressions: Hip pain, left UTI (urinary tract infection) Qualified Codes: N30.00 - Acute cystitis without hematuria Physical deconditioning Admitting Information Admitting Physician Requests: Admit Condition: Stable iDnora Lubin Jul 11, 2017 12:55
[2017-07-11] MEDS ORDERED: methylPREDNISolone SOD SUCC 125 MG/2 ML VIAL IV PUSH ONE (13:00)
[2017-07-11] MEDS ORDERED: SODIUM CHLORIDE 0.9% FLUSH 10 ML FLUSH IVF PRN (13:00)
[2017-07-11] MEDS: RESP: ALBUTEROL 2.5 MG/IPRATROPIUM 0.5 MG NEB (SCH) INH (13:09)
[2017-07-11 13:49] LABS: AUTOMATED NEUTROPHIL # 9.5 TH/MM3 (1.8-7.7); BASOPHIL # 0.1 TH/MM3 (0-0.2); BASOPHIL % 0.5 % (0.0-2.0); EOSINOPHIL # 0.2 TH/MM3 (0-0.4); EOSINOPHIL % 1.3 % (0.0-4.0); HEMATOCRIT 34.6 % (35.0-46.0); HEMOGLOBIN 11.4 GM/DL (11.6-15.3); LYMPH % 31.8 % (9.0-44.0); LYMPHOCYTE # 5.1 TH/MM3 (1.0-4.8); MEAN CORPUSCULAR HEMOGLOBIN 28.6 PG (27.0-34.0); MEAN CORPUSCULAR HGB CONC 32.9 % (32.0-36.0); MEAN PLATELET VOLUME 8.9 FL (7.0-11.0); MONO % 7.3 % (0.0-8.0); MONOCYTE # 1.2 TH/MM3 (0-0.9); NEUT % 59.1 % (16.0-70.0); PLATELET COUNT 169 TH/MM3 (150-450); RED BLOOD COUNT 3.97 MIL/MM3 (4.00-5.30); RED CELL DISTRIBUTION WIDTH 18.2 % (11.6-17.2)
[2017-07-11 13:57] LABS: INTERNATIONAL NORMALIZED RATIO 1.1 RATIO; PROTHROMBIN TIME - PATIENT 10.7 SEC (9.8-11.6)
[2017-07-11 14:03] LABS: LACTIC ACID SEPSIS PROTOCOL 2.1 mmol/L (0.4-2.0)
[2017-07-11 14:08] LABS: ALBUMIN 2.9 GM/DL (3.4-5.0); AST (GOT) 13 U/L (15-37); BICARBONATE 20.6 MEQ/L (21.0-32.0); BLOOD UREA NITROGEN 25 MG/DL (7-18); CALCIUM 8.5 MG/DL (8.5-10.1); CHLORIDE 106 MEQ/L (98-107); CREATININE 1.55 MG/DL (0.50-1.00); GLOMERULAR FILTRATION RATE 33 ML/MIN (>89); GLUCOSE,RANDOM 126 MG/DL (74-106); MAGNESIUM 1.9 MG/DL (1.5-2.5); SODIUM (NA) 138 MEQ/L (136-145)
[2017-07-11 14:11] LABS: ALKALINE PHOSPHATASE 102 U/L (45-117); ALT (GPT) 15 U/L (10-53); TOTAL BILIRUBIN ADULT 0.6 MG/DL (0.2-1.0); TOTAL PROTEIN 6.5 GM/DL (6.4-8.2); TROPONIN I 0.05 NG/ML (0.02-0.05)
--- NOTE | 2017-07-11 14:33 | RADRPT ---
EXAM DATE/TIME: 07/11/2017 14:02 [facility] COMPARISON: No previous studies available for comparison. INDICATIONS : Shortness of breath. MEDICAL HISTORY : Hypertension. Chronic obstructive pulmonary disease. Diabetes. SURGICAL HISTORY : None. ENCOUNTER: Initial ACUITY: 1 day PAIN SCORE: 0/10 LOCATION: Bilateral chest FINDINGS: PA and lateral views of the chest demonstrate interstitial densities and cardiomegaly. Diminished mirtha g volumes. No pleural effusions or consolidation. The cardiomediastinal contours are unremarkable. O sseous structures are intact. CONCLUSION: 1. There are diminished lung volumes without consolidation. 2. Cardiomegaly and probable interstitial edema. Saulo Zuniga MD on July 11, 2017 at 14:32 Board Certified Radiologist. This report was verified electronically.
[2017-07-11 15:12] LABS: BACTERIA, URINE OCC /hpf; BILIRUBIN, URINE NEG (NEG); BLOOD, URINE NEG (NEG); GLUCOSE,URINE NEG (NEG); HYALINE CAST, URINE 1 /lpf (RARE); KETONE, URINE NEG (NEG); NITRITE,URINE NEG (NEG); PH, URINE 5.5 (5.0-8.5); RENAL EPITHELIAL CELLS <1 /hpf; SQUAMOUS EPITHELIAL CELL URINE 1 /hpf (0-5); URINE COLOR YELLOW (YELLW/STRAW); URINE LEUKOCYTE ESTERASE LARGE (NEG); WHITE BLOOD CELL CLUMPS OCC
[2017-07-11] MEDS ORDERED: AZITHROMYCIN INJ 500 MG in SODIUM CHLOR 0.9% 250 ML INJ 250 ML IV ONE (16:00)
[2017-07-11] MEDS ORDERED: cefTRIAXone INJ 1,000 MG in SODIUM CHLORIDE 0.9% INJ 100 ML IV ONE (16:00)
[2017-07-11] MEDS ORDERED: MORPHINE SULFATE 2 MG/ML INJ IV PUSH ONE (16:15)
[2017-07-11] MEDS ORDERED: NALOXONE HCL 0.4 MG/ML AMP IV PUSH PRN (16:30)
[2017-07-11] MEDS ORDERED: ONDANSETRON HCL 4 MG/2 ML VIAL IVP PRN (16:30)
[2017-07-11] MEDS ORDERED: SODIUM CHLORIDE 0.9% FLUSH 10 ML FLUSH IV FLUSH PRN (16:30)
[2017-07-11] MEDS ORDERED: FUROSEMIDE 40 MG/4 ML VIAL IV PUSH ONE (17:00)
--- NOTE | 2017-07-11 17:12 | HHI.HP ---
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 and told her about needing higher oxygen - 2L at night but this am, using commode next to bed, pulse ox was 72 hip pain - left side no falls but had pain starting about 4 weeks ago at rehab getting oxygen via 50 feet long oxygen hose at home for 2L and thinks that she has been deprived off oxygen because the hose is too long - but this arrnagement has been there for about 3 weeks Review of Systems Except as stated in HPI: all other systems reviewed are Neg Past Family Social History Past Medical History htn' dm obesity oxygen dependent - at night and prn ckd 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 Mother had COPD. One of the sisters had pancreatic cancer. Younger sister has breast cancer. Social History Used to smoke cigarettes. Quit 50 years ago. Denies any alcohol abuse or drug abuse. Lives with her at home. No longer driving. Physical Exam Vital Signs Vital Signs Date Time Temp Pulse Resp B/P (MAP) Pulse Ox O2 Delivery O2 Flow Rate FiO2 07/11/17 15:12 91 24 175/74 (107) 99 Nasal Cannula 07/11/17 13:10 82 24 138/62 (87) 100 Nasal Cannula 4.00 07/11/17 12:06 97.5 85 25 139/64 (89) 99 Nasal Cannula 4.00 07/11/17 11:50 97.5 94 28 149/67 (94) 100 Physical Exam GENERAL: This is a morbidly obese lady, in quite a bit of distress and dyspnea. Partly anxiety. Part secondary to pain. SKIN: No rashes, ecchymoses or lesions. Cool and dry. HEAD: Atraumatic. Normocephalic. No temporal or scalp tenderness. EYES: No scleral icterus. No injection or drainage. ENT: Nose without bleeding, purulent drainage or septal hematoma. Airway patent. NECK: Trachea midline. No JVD . Supple, nontender, no meningeal signs. CARDIOVASCULAR: Regular rate and rhythm without murmurs, gallops, or rubs. RESPIRATORY: Bilaterally decreased air entry. Limited exam due to body habitus.. GASTROINTESTINAL: Abdomen soft, non-tender, nondistended.No guarding. Obese. Limited exam. MUSCULOSKELETAL: Extremities without clubbing, cyanosis, or edema No calf tenderness. NEUROLOGICAL: Awake and alert.Motor and sensory grossly within normal limits. Normal speech. Laboratory Laboratory Tests Test 07/11/17 13:12 07/11/17 15:00 White Blood Count 16.0 Red Blood Count 3.97 Hemoglobin 11.4 Hematocrit 34.6 Mean Corpuscular Volume 87.0 Mean Corpuscular Hemoglobin 28.6 Mean Corpuscular Hemoglobin Concent 32.9 Red Cell Distribution Width 18.2 Platelet Count 169 Mean Platelet Volume 8.9 Neutrophils (%) (Auto) 59.1 Lymphocytes (%) (Auto) 31.8 Monocytes (%) (Auto) 7.3 Eosinophils (%) (Auto) 1.3 Basophils (%) (Auto) 0.5 Neutrophils # (Auto) 9.5 Lymphocytes # (Auto) 5.1 Monocytes # (Auto) 1.2 Eosinophils # (Auto) 0.2 Basophils # (Auto) 0.1 CBC Comment DIFF FINAL Differential Comment Prothrombin Time 10.7 Prothromb Time International Ratio 1.1 Activated Partial Thromboplast Time 25.7 Blood Urea Nitrogen 25 Creatinine 1.55 Random Glucose 126 Total Protein 6.5 Albumin 2.9 Calcium Level 8.5 Magnesium Level 1.9 Alkaline Phosphatase 102 Aspartate Amino Transf (AST/SGOT) 13 Alanine Aminotransferase (ALT/SGPT) 15 Total Bilirubin 0.6 Sodium Level 138 Potassium Level 4.4 Chloride Level 106 Carbon Dioxide Level 20.6 Anion Gap 11 Estimat Glomerular Filtration Rate 33 Lactic Acid Level 2.1 Total Creatine Kinase 54 Troponin I 0.05 B-Type Natriuretic Peptide 17 Urine Color YELLOW Urine Turbidity HAZY Urine pH 5.5 Urine Specific [place] 1.012 Urine Protein 30 Urine Glucose (UA) NEG Urine Ketones NEG Urine Occult Blood NEG Urine Nitrite NEG Urine Bilirubin NEG Urine Urobilinogen LESS THAN 2.0 Urine Leukocyte Esterase LARGE Urine RBC 4 Urine WBC Urine WBC Clumps OCC Urine Squamous Epithelial Cells 1 Urine Renal Epithelial Cells <1 Urine Bacteria OCC Urine Hyaline Casts 1 Microscopic Urinalysis Comment CULTURE INDICATED Date/Time Source Procedure Growth Status 07/11/17 13:12 Blood Peripheral Aerobic Blood Culture Pending Received 07/11/17 13:12 Blood Peripheral Anaerobic Blood Culture Pending Received 07/11/17 15:00 Urine Clean Catch Urine Culture Pending Received Result Diagram: 07/11/17 1312 07/11/17 1312 Imaging Last 48 hours Impressions Chest X-Ray 07/11/17 1256 Signed Impressions: Service Date/Time: Tuesday, July 11, 2017 14:02 - CONCLUSION: 1. There are diminished lung volumes without consolidation. 2. Cardiomegaly and probable interstitial edema. MD Chon Lirianoi VTE Risk Assessment Capmckennai VTE Risk Assessment: Mod/High Risk (score >= 2) Caprini Risk Assessment Model Point Value = 1 Point Value = 2 Point Value = 3 Point Value = 5 Age 41-60 Minor surgery BMI > 25 kg/m2 Swollen legs Varicose veins or History of unexplained or recurrent spontaneous Oral contraceptives or hormone replacement Sepsis (< 1 month) Serious lung disease, including pneumonia (< 1 month) Abnormal pulmonary function Acute myocardial infarction Congestive heart failure (< 1 month) History of inflammatory bowel disease Medical patient at bed rest Age 61-74 Arthroscopic surgery Major open surgery (> 45 min) Laparoscopic surgery (> 45 min) Malignancy Confined to bed (> 72 hours) Immobilizing plaster cast Central venous access Age >= 75 History of VTE Family history of VTE Factor V Leiden Prothrombin [id number] Lupus anticoagulant Anticardiolipin antibodies Elevated serum homocysteine Heparin-induced thrombocytopenia Other congenital or acquired thrombophilia Stroke (< 1 month) Elective arthroplasty Hip, pelvis, or leg fracture Acute spinal cord injury (< 1 month) Prophylaxis Regimen Total Risk Factor Score Risk Level Prophylaxis Regimen 0-1 Low Early ambulation 2 Moderate Order ONE of the following: *Sequential Compression Device (SCD) *Heparin 5000 units SQ BID 3-4 Higher Order ONE of the following medications: *Heparin 5000 units SQ TID *Enoxaparin/Lovenox 40 mg SQ daily (WT < 150 kg, CrCl > 30 mL/min) *Enoxaparin/Lovenox 30 mg SQ daily (WT < 150 kg, CrCl > 10-29 mL/min) *Enoxaparin/Lovenox 30 mg SQ BID (WT < 150 kg, CrCl > 30 mL/min) AND/OR *Sequential Compression Device (SCD) 5 or more Highest Order ONE of the following medications: *Heparin 5000 units SQ TID (Preferred with Epidurals) *Enoxaparin/Lovenox 40 mg SQ daily (WT < 150 kg, CrCl > 30 mL/min) *Enoxaparin/Lovenox 30 mg SQ daily (WT < 150 kg, CrCl > 10-29 mL/min) *Enoxaparin/Lovenox 30 mg SQ BID (WT < 150 kg, CrCl > 30 mL/min) AND *Sequential Compression Device (SCD) Assessment and Plan Assessment and Plan Impression: Hypoxia. O2 sat of 70% on exertion at home. Usually is only dependent on oxygen 2 L by nasal cannula at nighttime. Immobility/recent prolonged hospitalization. Possible pulmonary embolism with history of prior PE/DVT/immobilization. Left hip pain and left lower extremity pain. Difficult to assess. Somewhat seems to be neuropathic although patient seems to be in constant pain at all times rather than episodic. We'll rule out fractures. Chest x-ray evidence of interstitial edema. Possible new onset CHF Versus fluid overload from hospital stay Plan: Give trial of Lasix 40 g IV one. Patient diuresed immediately about 400 cc. Her dyspnea is also related to anxiety/pain from her left hip. She however is not someone who is dependent on anxiety medications at home. Therefore would rule out pulmonary embolism given that she is high risk for it with prior history of it/immobility. VQ scan stat. Would also obtain CT pelvis without contrast to rule out fractures. Nebulizers when necessary. Pain control. Jose Nath MDb 27, 2018 17:12
[2017-07-11] MEDS ORDERED: GLUCAGON 1 MG/ML VIAL OTHER PRN (18:30)
[2017-07-11] MEDS ORDERED: RESP: ALBUTEROL 2.5 MG/IPRATROPIUM 0.5 MG NEB (PRN) NEB (18:30)
[2017-07-11] MEDS ORDERED: DEXTROSE 50% IN WATER 50 ML VIAL(D50) IV PUSH PRN (18:30)
--- NOTE | 2017-07-11 18:41 | RADRPT ---
EXAM DATE/TIME: 07/11/2017 17:52 [facility] COMPARISON: No previous studies available for comparison. INDICATIONS : Sciatica pain, ORAL CONTRAST: No oral contrast ingested. RADIATION DOSE: 51.71 CTDIvol (mGy) MEDICAL HISTORY : Cardiovascular disease. Hypertension. Chronic obstructive pulmonary disease.Renal disease,diabetes SURGICAL HISTORY : Appendectomy. Cholecystectomy. ENCOUNTER: Initial ACUITY: 1 week PAIN SCALE: 2/10 LOCATION: pelvis TECHNIQUE: Volumetric scanning of the pelvis was performed. Using automated exposure control and adjustment of the mA and/or kV according to patient size, radiation dose was kept as low as reasonably achievable t o obtain optimal diagnostic quality images. DICOM format image data is available electronically for review and comparison. FINDINGS: Examination of the pelvis demonstrates no evidence of free fluid or pelvic mass. No abnormally enlarg ed inguinal or retroperitoneal lymph nodes are present. The bladder is unremarkable. A right hip arth roplasty is present. This creates significant beam hardening artifact. Bone windows demonstrate facet arthritis at the lumbosacral junction. There is no evidence of acute fracture. Moderate osteoarthri tis is present in the left hip joint. CONCLUSION: 1. No evidence of acute pelvic process. No masses are identified. There is no evidence of acute frac ture. Nicholas Trejo MD on July 11, 2017 at 18:38 Board Certified Radiologist. This report was verified electronically.
--- NOTE | 2017-07-11 19:35 | RADRPT ---
EXAM DATE/TIME: 07/11/2017 18:03 [facility] COMPARISON: CHEST PA & LAT, July 11, 2017, 14:02. INDICATIONS : Dyspnea. DOSE: 1.23 mCi Tc99m DTPA 8.8 mCi Tc99m MAA MEDICAL HISTORY : Hypertension. Chronic obstructive pulmonary disease. SURGICAL HISTORY : Tonsillectomy. Cholecystectomy. ENCOUNTER: Initial ACUITY: 1 day PAIN SCALE: 4/10 LOCATION: Bilateral Hips. TECHNIQUE: Following five minutes of tidal breathing of DTPA aerosol, planar images of the lungs were performed in eight projections. The patient was then injected with MAA, and eight-view perfusion scan was perf ormed. FINDINGS: There is a large mismatched perfusion defect involving multiple segments in the left lower lobe karl cteristic of pulmonary embolism. The right lung is unremarkable. CONCLUSION: 1. High probability for embolism Nicholas Trejo MD on July 11, 2017 at 19:31 Board Certified Radiologist. This report was verified electronically.
[2017-07-11] MEDS: RESP: ALBUTEROL 2.5 MG/IPRATROPIUM 0.5 MG NEB (SCH) NEB (20:38)
[2017-07-11] MEDS: PANTOPRAZOLE SOD 40 MG DELAYED RELEASE TAB PO SCH (21:58)
[2017-07-11] MEDS: INSULIN DETEMIR 100 UNITS/ML VIAL SQ SCH (21:59)
[2017-07-11] MEDS: hydrALAZINE HCL 50 MG TAB PO SCH (21:59)
[2017-07-11] MEDS: CARVEDILOL 12.5 MG TAB PO SCH (21:59)
[2017-07-11] MEDS: ORPHENADRINE CITRATE 100 MG SUSTAINED RELEASE TAB PO SCH (21:59)
[2017-07-11] MEDS ORDERED: HEPARIN-D5W 25,000 U/250 ML 250 ML IV PRN (22:00)
[2017-07-11] MEDS ORDERED: HEPARIN SODIUM - IV 10,000 UNITS/10 ML VIAL IV PUSH ONE (22:00)
[2017-07-11] MEDS: INSULIN ASPART SUPPLEMENTAL SCALE SQ SCH (22:00)
[2017-07-11] MEDS: VITAMINS A & D OINT 60 GM TUBE TOPICAL SCH (22:01)
[2017-07-11] MEDS: SODIUM CHLORIDE 0.9% FLUSH 10 ML FLUSH IV FLUSH SCH (22:10)
[2017-07-12] VITALS (13 sets, daily range): BP systolic 130–152; BP diastolic 55–71; PULSE 65–96; RESP 19–25; TEMP 97.6–98; O2SAT 95–99
[2017-07-12] MEDS: ACETAMINOPHEN/HYDROcodone 325 MG/5 MG TAB PO PRN ×3 (01:57→21:10)
[2017-07-12] MEDS: hydrALAZINE HCL 50 MG TAB PO SCH ×3 (06:02→21:10)
[2017-07-12] MEDS: SUCRALFATE 1 GM/10 ML CUP PO SCH ×2 (06:03→16:08)
[2017-07-12 06:17] LABS: AUTOMATED NEUTROPHIL # 9.7 TH/MM3 (1.8-7.7); BASOPHIL % 0.2 % (0.0-2.0); EOSINOPHIL % 0.1 % (0.0-4.0); HEMATOCRIT 33.6 % (35.0-46.0); HEMOGLOBIN 10.9 GM/DL (11.6-15.3); LYMPH % 20.1 % (9.0-44.0); LYMPHOCYTE # 2.6 TH/MM3 (1.0-4.8); MEAN CELL VOLUME 87.5 FL (80.0-100.0); MEAN CORPUSCULAR HEMOGLOBIN 28.4 PG (27.0-34.0); MEAN CORPUSCULAR HGB CONC 32.5 % (32.0-36.0); MEAN PLATELET VOLUME 8.9 FL (7.0-11.0); MONO % 3.3 % (0.0-8.0); MONOCYTE # 0.4 TH/MM3 (0-0.9); NEUT % 76.3 % (16.0-70.0); PLATELET COUNT 138 TH/MM3 (150-450); RED BLOOD COUNT 3.84 MIL/MM3 (4.00-5.30); RED CELL DISTRIBUTION WIDTH 18.2 % (11.6-17.2); WHITE BLOOD COUNT 12.8 TH/MM3 (4.0-11.0)
[2017-07-12 06:38] LABS: BICARBONATE 22.7 MEQ/L (21.0-32.0); CALCIUM 8.5 MG/DL (8.5-10.1); CREATININE 1.63 MG/DL (0.50-1.00)
[2017-07-12] MEDS: RESP: ALBUTEROL 2.5 MG/IPRATROPIUM 0.5 MG NEB (SCH) NEB ×3 (08:24→20:20)
[2017-07-12] MEDS: ORPHENADRINE CITRATE 100 MG SUSTAINED RELEASE TAB PO SCH ×2 (09:00→21:11)
[2017-07-12] MEDS: TOLTERODINE TARTRATE 4 MG CAP LA PO SCH (09:00)
[2017-07-12] MEDS: ASPIRIN 81 MG CHEW TAB CHEW SCH (09:00)
[2017-07-12] MEDS: VITAMINS A & D OINT 60 GM TUBE TOPICAL SCH ×2 (09:00→21:00)
[2017-07-12] MEDS: INSULIN ASPART SUPPLEMENTAL SCALE SQ SCH ×4 (09:08→21:00)
[2017-07-12] MEDS: INSULIN DETEMIR 100 UNITS/ML VIAL SQ SCH ×2 (09:08→21:11)
[2017-07-12] MEDS: LISINOPRIL 5 MG TAB PO SCH (09:09)
[2017-07-12] MEDS: PRAVASTATIN SOD 40 MG TAB PO SCH (09:09)
[2017-07-12] MEDS: CARVEDILOL 12.5 MG TAB PO SCH ×2 (09:09→21:11)
[2017-07-12] MEDS: PANTOPRAZOLE SOD 40 MG DELAYED RELEASE TAB PO SCH ×2 (09:09→21:11)
[2017-07-12] MEDS: amLODIPine BESYLATE 5 MG TAB PO SCH (09:09)
[2017-07-12] MEDS: VENLAFAXINE HCL 75 MG TAB PO SCH (09:09)
[2017-07-12] MEDS: SODIUM CHLORIDE 0.9% FLUSH 10 ML FLUSH IV FLUSH SCH ×2 (09:10→21:11)
[2017-07-12] MEDS ORDERED: APIXABAN 5 MG TABLET PO ONE (12:30)
--- NOTE | 2017-07-12 12:30 | EKG ---
Date Performed: 07/11/2017 Time Performed: 13:44:05 PTAGE: 71 years EKG: Sinus rhythm LEFT BUNDLE BRANCH BLOCK ABNORMAL ECG PREVIOUS TRACING : 05/14/2017 20.07 Since the prior tracing, there has been no significant gloria DOCTOR: Nicholas Osorio Interpretating Date/Time 07/12/2017 12:29:17
--- NOTE | 2017-07-12 13:59 | PQ ---
Physician Query Response Document PATIENT: REUBEN PANIAGUA : 1945 ADMIT DATE: 07/11/2017 9:54 PM DISCH DATE: RESPONDING PROVIDER #: chad QUERY TEXT: Respiratory Failure Acuity and Type Acute hypoxic respiratory failure, present on admission, in setting of sepsis and COPD treated with O 2 and nebulizers Other explanation of clinical findings. Unable to determine (no explanation for clinical findings). The patient's Clinical Indicators include: The medical record reflects the following clinical findings, treatment, and risk factors. * Clinical Indicators O2 sat 70%, resp rate 28, HR 94, VQ: High probablility for embolism * Risk Factors Sepsis, VQ: High probablility for embolism * Treatment O2 dependent 2 liters increased to 4 liters w/nebulizer therapy Please clarify and document your clinical opinion in the progress notes and discharge summary includi ng the definitive and/or presumptive diagnosis (suspected or probable), related to the above clinical findings. Please include clinical findings supporting your diagnosis. Thank you, Aurelia Blevins CDS: Aurelia Blevins Contact Number: CDS/RN ext. [phone] Query created by: Aurelia Blevins on 07/12/2017 11:09 AM RESPONSE TEXT: Acute hypoxic respiratory failure likely due to pulmonary embolism. Electronically signed by: Amandeep Ricardo DO 07/12/2017 1:55 PM
[2017-07-12] MEDS ORDERED: cefTRIAXone INJ 1,000 MG in SODIUM CHLORIDE 0.9% INJ 100 ML IV SCH (16:00)
[2017-07-12] MEDS ORDERED: APIXABAN 5 MG TABLET PO SCH (21:00)
--- NOTE | 2017-07-12 23:03 | HHI.PR ---
Subjective Remarks Follow-up for pulmonary embolism. Patient is currently doing well. No acute concerns. She is breathing well on supplemental oxygen via nasal cannula. No fever or chills. She complains of persistent left-sided lower extremity pain which is chronic for her. Objective Vitals Vital Signs Date Time Temp Pulse Resp B/P (MAP) Pulse Ox O2 Delivery O2 Flow Rate FiO2 07/12/17 20:22 97 Nasal Cannula 3.00 07/12/17 16:00 97.8 65 20 130/59 (82) 98 07/12/17 15:47 65 07/12/17 12:32 65 07/12/17 12:00 97.6 66 22 135/55 (81) 97 07/12/17 10:10 18 07/12/17 08:27 99 Nasal Cannula 3.00 07/12/17 08:00 97.6 85 25 136/63 (87) 96 07/12/17 08:00 97 Room Air 07/12/17 07:43 75 07/12/17 04:00 98.0 85 19 151/67 (95) 95 07/12/17 03:47 83 07/12/17 00:02 91 07/12/17 00:00 97.6 96 20 152/71 (98) 99 I/O 07/12/17 07/12/17 07/12/17 07/13/17 07/13/17 07/13/17 07:00 15:00 23:00 07:00 15:00 23:00 Intake Total 460 ml 720 ml Output Total 1100 ml 400 ml Balance -640 ml 320 ml Intake Oral 460 ml 720 ml Output Urine Total 1100 ml 400 ml # Voids 2 # Bowel Movements 0 Result Diagram: 07/12/17 0445 07/12/17 0445 Imaging Last Impressions Chest X-Ray 07/11/17 1256 Signed Impressions: Service Date/Time: Tuesday, July 11, 2017 14:02 - CONCLUSION: 1. There are diminished lung volumes without consolidation. 2. Cardiomegaly and probable interstitial edema. Saulo Zuniga MD Pelvis CT 07/11/17 0000 Signed Impressions: Service Date/Time: Tuesday, July 11, 2017 17:52 - CONCLUSION: 1. No evidence of acute pelvic process. No masses are identified. There is no evidence of acute fracture. Nicholas Trejo MD Lung Scan-VQ Nuclear Medicine 07/11/17 0000 Signed Impressions: Service Date/Time: Tuesday, July 11, 2017 18:03 - CONCLUSION: 1. High probability for embolism Nicholas Trejo MD Objective Remarks GENERAL: Alert, oriented 3, NAD. Morbidly obese SKIN: Warm and dry. HEAD: Normocephalic. EYES: No scleral icterus. No injection or drainage. NECK: Supple, trachea midline. No JVD or lymphadenopathy. CARDIOVASCULAR: Regular rate and rhythm without murmurs, gallops, or rubs. RESPIRATORY: Moderate air entry. No wheezing noted. no accessory muscle use. GASTROINTESTINAL: Abdomen soft, non-tender, nondistended. MUSCULOSKELETAL: No cyanosis, or edema. BACK: Nontender without obvious deformity. No CVA tenderness. Procedures None. A/P Problem List: (1) Pulmonary embolism ICD Code: I26.99 - Other pulmonary embolism without acute cor pulmonale (2) UTI (urinary tract infection) ICD Code: N39.0 - Urinary tract infection, site not specified Status: Acute (3) Hip pain, left ICD Code: M25.552 - Pain in left hip Status: Acute (4) CKD (chronic kidney disease) stage 3, GFR 30-59 ml/min ICD Code: N18.3 - Chronic kidney disease, stage 3 (moderate) Assessment and Plan Ms. Laureano is a pleasant 71-year-old female with a history of left sciatica pain who presented to the emergency department on 07/11/2017 due to shortness of breath and low and low oxygen saturation noted by her physical therapist. She recently had an extensive hospitalization due to bilateral pneumonia and required intubation. She follows up with outpatient orthopedic surgeon Dr. Hoover with regards to left hip pain. Upon admission to the hospital, patient underwent VQ scan which showed high probability for pulmonary embolism. Patient was started on heparin drip. - Pulmonary embolism - Probable obesity hypoventilation syndrome - Will d/c heparin and start patient on Apixaban 10mg BID X 7 days then 5mg BID. - Supplemental O2 to keep O2 sat > 90%. - Patient has home O2. - UTI - history of frequent UTI. Continue Ceftriaxone. Follow cultures. - CKD Stage III. Creatinine around 1.6. - Chronic left hip pain - Patient follows up with Orthopedic surgery in the outpatient setting. - May consider Gabapentin for neuropathic pain. Full code. Apixaban. Problem Qualifiers (1) UTI (urinary tract infection): Qualified Codes: N30.00 - Acute cystitis without hematuria Dinorah Ricardo DO Jul 12, 2017 23:03
[2017-07-12] MEDS: APIXABAN 5 MG TABLET PO SCH (23:25)
[2017-07-13] VITALS (9 sets, daily range): BP systolic 115–191; BP diastolic 55–88; PULSE 59–77; RESP 18; TEMP 97.1–97.7; O2SAT 93–98
[2017-07-13] MEDS: hydrALAZINE HCL 50 MG TAB PO SCH ×3 (04:58→21:02)
[2017-07-13] MEDS: ACETAMINOPHEN/HYDROcodone 325 MG/5 MG TAB PO PRN ×3 (04:58→22:50)
[2017-07-13] MEDS: SUCRALFATE 1 GM/10 ML CUP PO SCH ×2 (04:58→18:25)
[2017-07-13] MEDS: INSULIN ASPART SUPPLEMENTAL SCALE SQ SCH ×4 (08:00→21:00)
[2017-07-13] MEDS: RESP: ALBUTEROL 2.5 MG/IPRATROPIUM 0.5 MG NEB (SCH) NEB ×3 (08:34→20:24)
[2017-07-13] MEDS: VENLAFAXINE HCL 75 MG TAB PO SCH (08:51)
[2017-07-13] MEDS: PANTOPRAZOLE SOD 40 MG DELAYED RELEASE TAB PO SCH ×2 (08:52→21:01)
[2017-07-13] MEDS: amLODIPine BESYLATE 5 MG TAB PO SCH (08:52)
[2017-07-13] MEDS: TOLTERODINE TARTRATE 4 MG CAP LA PO SCH (08:52)
[2017-07-13] MEDS: GABAPENTIN 100 MG CAP PO SCH ×3 (08:52→18:25)
[2017-07-13] MEDS: LISINOPRIL 5 MG TAB PO SCH (08:52)
[2017-07-13] MEDS: ASPIRIN 81 MG CHEW TAB CHEW SCH (08:52)
[2017-07-13] MEDS: PRAVASTATIN SOD 40 MG TAB PO SCH (08:52)
[2017-07-13] MEDS: CARVEDILOL 12.5 MG TAB PO SCH ×2 (08:52→21:00)
[2017-07-13] MEDS: VITAMINS A & D OINT 60 GM TUBE TOPICAL SCH ×2 (08:53→21:00)
[2017-07-13] MEDS: INSULIN DETEMIR 100 UNITS/ML VIAL SQ SCH ×2 (08:53→21:00)
[2017-07-13] MEDS: ORPHENADRINE CITRATE 100 MG SUSTAINED RELEASE TAB PO SCH ×2 (09:00→21:01)
[2017-07-13] MEDS: SODIUM CHLORIDE 0.9% FLUSH 10 ML FLUSH IV FLUSH SCH ×2 (09:00→21:00)
[2017-07-13] MEDS: APIXABAN 5 MG TABLET PO SCH ×2 (12:52→22:50)
--- NOTE | 2017-07-13 14:55 | HHI.PR ---
Subjective Remarks Follow-up for pulmonary embolism. Patient is currently doing well. No fever or chills. Chills. She continues to have left lower extremity pain. Objective Vitals Vital Signs Date Time Temp Pulse Resp B/P (MAP) Pulse Ox O2 Delivery O2 Flow Rate FiO2 07/13/17 12:37 97.7 60 18 115/57 (76) 97 07/13/17 08:35 93 Nasal Cannula 3.00 07/13/17 08:00 97.6 65 18 142/57 (85) 96 07/13/17 04:00 65 07/13/17 04:00 Nasal Cannula 4.00 07/13/17 04:00 97.3 77 18 191/75 (113) 97 07/13/17 00:00 97.5 62 18 123/88 (100) 98 07/13/17 00:00 Nasal Cannula 4.00 07/13/17 00:00 61 07/12/17 20:22 97 Nasal Cannula 3.00 07/12/17 20:00 Nasal Cannula 4.00 07/12/17 20:00 72 07/12/17 20:00 97.8 69 20 143/71 (95) 97 07/12/17 16:00 97.8 65 20 130/59 (82) 98 07/12/17 15:47 65 I/O 07/12/17 07/12/17 07/12/17 07/13/17 07/13/17 07/13/17 07:00 15:00 23:00 07:00 15:00 23:00 Intake Total 460 ml 720 ml 480 ml Output Total 1100 ml 400 ml 500 ml Balance -640 ml 320 ml -20 ml Intake Oral 460 ml 720 ml 480 ml Output Urine Total 1100 ml 400 ml 500 ml # Voids 2 # Bowel Movements 0 0 Result Diagram: 07/12/17 0445 07/12/17 0445 Imaging Last Impressions Chest X-Ray 07/11/17 1256 Signed Impressions: Service Date/Time: Tuesday, July 11, 2017 14:02 - CONCLUSION: 1. There are diminished lung volumes without consolidation. 2. Cardiomegaly and probable interstitial edema. Saulo Zuniga MD Pelvis CT 07/11/17 0000 Signed Impressions: Service Date/Time: Tuesday, July 11, 2017 17:52 - CONCLUSION: 1. No evidence of acute pelvic process. No masses are identified. There is no evidence of acute fracture. Nicholas Trejo MD Lung Scan-VQ Nuclear Medicine 07/11/17 0000 Signed Impressions: Service Date/Time: Tuesday, July 11, 2017 18:03 - CONCLUSION: 1. High probability for embolism Nicholas Trejo MD Objective Remarks GENERAL: Alert, oriented 3, NAD. Morbid obesity. SKIN: Warm and dry. HEAD: Normocephalic. EYES: No scleral icterus. No injection or drainage. NECK: Supple, trachea midline. No JVD or lymphadenopathy. CARDIOVASCULAR: Regular rate and rhythm without murmurs, gallops, or rubs. RESPIRATORY: Breath sounds equal bilaterally. No accessory muscle use. GASTROINTESTINAL: Abdomen soft, non-tender, nondistended. MUSCULOSKELETAL: No cyanosis, or edema. BACK: Nontender without obvious deformity. No CVA tenderness. Procedures None A/P Assessment and Plan Ms. Laureano is a pleasant 71-year-old female with a history of left sciatica pain who presented to the emergency department on 07/11/2017 due to shortness of breath and low and low oxygen saturation noted by her physical therapist. She recently had an extensive hospitalization due to bilateral pneumonia and required intubation. She follows up with outpatient orthopedic surgeon Dr. Hoover with regards to left hip pain. Upon admission to the hospital, patient underwent VQ scan which showed high probability for pulmonary embolism. Patient was started on heparin drip. - Pulmonary embolism - Probable obesity hypoventilation syndrome - Will d/c heparin and start patient on Apixaban 10mg BID X 7 days then 5mg BID. - Supplemental O2 to keep O2 sat > 90%. - Patient has home O2. - UTI - history of frequent UTI. Will discontinue ceftriaxone. Urine culture is growing Enterobacter. Resistant to ceftriaxone. But sensitive to Bactrim. Patient is allergic to Cipro. Will start patient on Bactrim twice daily. - CKD Stage III. Creatinine around 1.6. - Chronic left hip pain - Patient follows up with Orthopedic surgery in the outpatient setting. - May consider Gabapentin for neuropathic pain. -Morbid obesity -discussed with patient regarding changing eating habits, forced to try to lose weight. Patient is motivated. Full code. Apixaban. Discharge plan: We will refer patient to [facility]. If not accepted, patient can go to SNF. Dinorah Ricardo DO Jul 13, 2017 14:55
[2017-07-13] MEDS: SULFAMETHOXAZOLE-TRIMETHOPRIM DS 800-160 MG TAB PO SCH (21:00)
[2017-07-14] VITALS: BP 122/64; PULSE 66; RESP 20; TEMP 97.8; O2SAT 99
[2017-07-14 04:00] VITALS: BP 142/74; PULSE 63; RESP 20; TEMP 98; O2SAT 98
[2017-07-14] MEDS: SUCRALFATE 1 GM/10 ML CUP PO SCH ×2 (06:13→18:03)
[2017-07-14] MEDS: hydrALAZINE HCL 50 MG TAB PO SCH ×2 (06:13→13:03)
[2017-07-14] MEDS: ACETAMINOPHEN/HYDROcodone 325 MG/5 MG TAB PO PRN ×2 (06:16→18:02)
[2017-07-14 07:54] VITALS: PULSE 60
[2017-07-14 08:00] VITALS: BP 128/60; PULSE 66; RESP 20; TEMP 97.2; O2SAT 100
[2017-07-14] MEDS: INSULIN ASPART SUPPLEMENTAL SCALE SQ SCH ×3 (08:00→17:00)
[2017-07-14 08:59] LABS: HEMATOCRIT 31.8 % (35.0-46.0); HEMOGLOBIN 10.5 GM/DL (11.6-15.3); MEAN CELL VOLUME 87.2 FL (80.0-100.0); MEAN CORPUSCULAR HEMOGLOBIN 28.8 PG (27.0-34.0); MEAN PLATELET VOLUME 8.8 FL (7.0-11.0); PLATELET COUNT 147 TH/MM3 (150-450); RED BLOOD COUNT 3.64 MIL/MM3 (4.00-5.30); RED CELL DISTRIBUTION WIDTH 18.5 % (11.6-17.2); WHITE BLOOD COUNT 12.3 TH/MM3 (4.0-11.0)
[2017-07-14] MEDS: VITAMINS A & D OINT 60 GM TUBE TOPICAL SCH (09:00)
[2017-07-14] MEDS: TOLTERODINE TARTRATE 4 MG CAP LA PO SCH (09:00)
[2017-07-14] MEDS: RESP: ALBUTEROL 2.5 MG/IPRATROPIUM 0.5 MG NEB (SCH) NEB ×2 (09:27→14:00)
[2017-07-14] MEDS: INSULIN DETEMIR 100 UNITS/ML VIAL SQ SCH (09:43)
[2017-07-14] MEDS: amLODIPine BESYLATE 5 MG TAB PO SCH (09:44)
[2017-07-14] MEDS: GABAPENTIN 100 MG CAP PO SCH ×3 (09:44→18:02)
[2017-07-14] MEDS: LISINOPRIL 5 MG TAB PO SCH (09:44)
[2017-07-14] MEDS: ASPIRIN 81 MG CHEW TAB CHEW SCH (09:45)
[2017-07-14] MEDS: PRAVASTATIN SOD 40 MG TAB PO SCH (09:45)
[2017-07-14] MEDS: SULFAMETHOXAZOLE-TRIMETHOPRIM DS 800-160 MG TAB PO SCH (09:45)
[2017-07-14] MEDS: CARVEDILOL 12.5 MG TAB PO SCH (09:45)
[2017-07-14] MEDS: PANTOPRAZOLE SOD 40 MG DELAYED RELEASE TAB PO SCH (09:45)
[2017-07-14] MEDS: ORPHENADRINE CITRATE 100 MG SUSTAINED RELEASE TAB PO SCH (09:45)
[2017-07-14] MEDS: VENLAFAXINE HCL 75 MG TAB PO SCH (09:46)
[2017-07-14 12:00] VITALS: BP 133/68; PULSE 60; RESP 20; TEMP 97.9; O2SAT 98
[2017-07-14] MEDS ORDERED: SULFAMETHOXAZOLE-TRIMETHOPRIM 800-160 MG/20 ML UDC PO SCH (13:00)
[2017-07-14] MEDS: APIXABAN 5 MG TABLET PO SCH (13:03)
[2017-07-14] MEDS ORDERED: HYDR-3516 PO (14:32)
[2017-07-14] MEDS ORDERED: NOVOLOGP2 SQ (14:56)
[2017-07-14] MEDS ORDERED: APIX5TAB PO ×2 (14:56→18:50)
[2017-07-14 16:00] VITALS: BP 141/77; PULSE 100; RESP 20; TEMP 98.4; O2SAT 94
--- NOTE | 2017-07-14 18:58 | HHI.DS ---
Discharge Summary Admission Date Jul 11, 2017 at 21:54 Discharge Date: Jul 14, 2017 Admitting Diagnosis hypoxia, UTI, r/o sepsis (1) Pulmonary embolism ICD Code: I26.99 - Other pulmonary embolism without acute cor pulmonale (2) UTI (urinary tract infection) ICD Code: N39.0 - Urinary tract infection, site not specified Status: Acute (3) Hip pain, left ICD Code: M25.552 - Pain in left hip Status: Acute (4) CKD (chronic kidney disease) stage 3, GFR 30-59 ml/min ICD Code: N18.3 - Chronic kidney disease, stage 3 (moderate) Procedures None Brief History - From Admission short of breath 1 week denies worsening edema always needs pillows due to achalsia no fever seems anxious but is short of breath has been dc about 3 weeks urinary urgency at home was wearing a pull up at night because of this hx of multiple UTIs rehab nursing tech came today, she called her supervisor roving department and told her about needing higher oxygen - 2L at night but this am, using commode next to bed, pulse ox was 72 hip pain - left side no falls but had pain starting about 4 weeks ago at rehab getting oxygen via 50 feet long oxygen hose at home for 2L and thinks that she has been deprived off oxygen because the hose is too long - but this arrnagement has been there for about 3 weeks CBC/BMP: 07/14/17 0828 07/12/17 0445 Significant Findings Laboratory Tests Test 07/12/17 04:45 07/12/17 11:29 07/14/17 08:28 White Blood Count 12.8 TH/MM3 (4.0-11.0) 12.3 TH/MM3 (4.0-11.0) Red Blood Count 3.84 MIL/MM3 (4.00-5.30) 3.64 MIL/MM3 (4.00-5.30) Hemoglobin 10.9 GM/DL (11.6-15.3) 10.5 GM/DL (11.6-15.3) Hematocrit 33.6 % (35.0-46.0) 31.8 % (35.0-46.0) Red Cell Distribution Width 18.2 % (11.6-17.2) 18.5 % (11.6-17.2) Platelet Count 138 TH/MM3 (150-450) 147 TH/MM3 (150-450) Neutrophils (%) (Auto) 76.3 % (16.0-70.0) Neutrophils # (Auto) 9.7 TH/MM3 (1.8-7.7) Activated Partial Thromboplast Time GREATER THAN 277.5 SEC 51.1 SEC (24.3-30.1) Blood Urea Nitrogen 31 MG/DL (7-18) Creatinine 1.63 MG/DL (0.50-1.00) Random Glucose 282 MG/DL (74-106) Estimat Glomerular Filtration Rate 31 ML/MIN (>89) PE at Discharge GENERAL: Alert, oriented 3, NAD. Morbid obesity. SKIN: Warm and dry. HEAD: Normocephalic. EYES: No scleral icterus. No injection or drainage. NECK: Supple, trachea midline. No JVD or lymphadenopathy. CARDIOVASCULAR: Regular rate and rhythm without murmurs, gallops, or rubs. RESPIRATORY: Breath sounds equal bilaterally. No accessory muscle use. GASTROINTESTINAL: Abdomen soft, non-tender, nondistended. MUSCULOSKELETAL: No cyanosis, or edema. BACK: Nontender without obvious deformity. No CVA tenderness. Pt Condition on Discharge: Good Discharge Disposition: Discharge to SNF Discharge Time: > 30 minutes Discharge Instructions DIET: Follow Instructions for: Diabetic Diet Activities you can perform: Regular-No Restrictions Follow up Referrals: SNF/SNF/ with [facility] New Medications: Apixaban (Eliquis) 5 Mg Tab 5 MG PO BID for Blood Clot Prevention, #60 TAB 0 Refills START AFTER finishing 10mg BID doses. Insulin Aspart Inj (Novolog Inj) 1,000 Unit/10 Ml Vial 1-9 UNITS SQ ACHS for Blood Sugar Management, #10 ML 0 Refills Max dose at bedtime:( )units; sugars less than 70,(0)units; sugars 150-199,(1) unit; sugars 200-249,(3) units; sugars 250-299,(5) units; sugars 300-349,(7) units; sugars greater than 349,(9) units Apixaban (Eliquis) 5 Mg Tab 10 MG PO Q12H for Blood Clot Prevention, #10 TAB Continued Medications: Albuterol 18 GM Inh (Ventolin Hfa 18 GM Inh) 90 Mcg/Act Aer 2 PUFF INH Q4-6H PRN for SHORTNESS OF BREATH, #1 INHALER 0 Refills Amlodipine (Norvasc) 5 Mg Tab 5 MG PO DAILY, #30 TAB Carvedilol (Carvedilol) 12.5 Mg Tab 12.5 MG PO BID, #60 TAB [address] (Nexium) 40 Mg Capdr 40 MG PO BID, #60 CAP 0 Refills Hydralazine HCl (Hydralazine HCl) 50 Mg Tablet 50 MG PO Q8HR, #90 Hydrocodone/Acetaminophen (Hydrocodone-Acetamin 5-325 mg) 5 Mg-325 Mg Tablet 1 TAB PO Q6HR PRN for Pain 6-10, #20 TAB (This prescription has been renewed) Insulin Detemir Inj (Levemir Inj) 1,000 unit/ 10 ML Vial 30 UNITS SQ BID for Blood Sugar Management for 30 Days, VIAL 0 Refills Do not mix with any other Insulin. Lisinopril (Lisinopril) 5 Mg Tab 2.5 MG PO DAILY, #30 TAB Lovastatin (Lovastatin) 40 Mg Tab 40 MG PO DAILY for Cholesterol Management, #30 TAB 0 Refills Orphenadrine ER 12 HR (Orphenadrine CR) 100 Mg Tab 100 MG PO Q12HR for Muscle Spasm for 10 Days, #20 TAB 0 Refills Petrolatum/Vit A/Vit D3/E/Aloe (S-C Moist Barrier Oint-Aloe) 98.3 % Oint...g. 1 APPLIC TOPICAL BID for 30 Days Solifenacin (Vesicare) 10 Mg Tab 10 MG PO DAILY for Urinary Symptom Managemen, #30 TAB 0 Refills Sucralfate Liq (Sucralfate Liq) 1 Gram/10 Ml Beata 1 GM PO BIDAC for 30 Days Venlafaxine (Effexor) 75 Mg Tab 150 MG PO DAILY, #60 TAB 0 Refills [Budeson-Formot 160-4.5 Mcg Inh] () 60 PUFF AERO 2 PUFF INH Q12HR for 30 Days Discontinued Medications: Aspirin (Aspirin) 81 Mg Chew 81 MG CHEW DAILY, #30 TAB 0 Refills Methylprednisolone Dosepak (Medrol Dosepak) 4 Mg Dspk 4 MG PO DIRECTED, #1 DSPK 0 Refills Per Pharmacist direction Temazepam (Restoril) 15 Mg Cap 15 MG PO HS PRN for INSOMNIA, #30 CAP Dinorah Ricardo DO Jul 14, 2017 18:58
== END 2017-07-14 19:04 | DRG 175 ==
LOC: NEPC 11:39 → NEDA 16:42 → N04A 19:27 → OBSVTOIN 21:54
PROVIDERS: ADMIT Hospitalist; ATTEND Hospitalist
DX: I26.99 Other pulmonary embolism without acute cor pulmonale (principal); J96.01 Acute respiratory failure with hypoxia; E66.2 Morbid (severe) obesity with alveolar hypoventilation; Z68.41 Body mass index [BMI] 40.0-44.9, adult; N39.0 Urinary tract infection, site not specified; E11.22 Type 2 diabetes mellitus with diabetic chronic kidney disease; I12.9 Hypertensive chronic kidney disease with stage 1 through stage 4 chronic kidney disease, or unspecified chronic kidney disease; N18.3 Chronic kidney disease, stage 3 (moderate); M25.552 Pain in left hip; Z86.711 Personal history of pulmonary embolism; Z86.718 Personal history of other venous thrombosis and embolism; Z87.891 Personal history of nicotine dependence; Z87.440 Personal history of urinary (tract) infections
CPT/HCPCS: 71046; 72192; 78582; 80048; 80053; 81001; 82550; 82948; 83605; 83735; 83880; 84484; 85025; 85027; 85610; 85730; 87040; 87077; 87086; 87186; 93005; 94640; 94664; 96374; A9540; A9567; J0456; J0696; J1644; J1815; J1940; J2270; J2930; J7050

== ENCOUNTER → 2017-08-31 | Outpatient (CLI) | payer MEDICARE, OTHER ==
[~2017-08-31] MED LIST changes: +APIX5TAB PO; -ASPI-516 CHEW; -MEDR4PAK PO; +NOVOLOGP2 SQ; -REST15CA PO
[2017-08-31 12:45] LABS: BICARBONATE 24.3 MEQ/L (21.0-32.0); CALCIUM 8.6 MG/DL (8.5-10.1); CREATININE 1.47 MG/DL (0.50-1.00)
== END ==
LOC: ELAB 11:10
PROVIDERS: ATTEND Family Medicine
DX: N39.0 Urinary tract infection, site not specified (principal)
CPT/HCPCS: 36415; 80048